=== PATIENT | female | born 1960 | race Hispanic/Latino ===

== ENCOUNTER 2018-08-05 19:21 | Emergency (ER) | payer BC ==
[2018-08-05] MEDS ORDERED: ONDANSETRON HCL 4 MG/2 ML VIAL ONE (20:08)
[2018-08-05 20:28] LABS: APPEARANCE,URINE Clear (CLEAR); BILIRUBIN,URINE Negative (NEGATIVE); COLOR,URINE Yellow (YELLOW); GLUCOSE, URINE (UA) Negative (NEGATIVE); KETONES,URINE Negative (NEGATIVE); LEUKOCYTE ESTERASE ,URINE Negative (NEGATIVE); NITRATE,URINE Negative (NEGATIVE); OCCULT BLOOD,URINE Negative (NEGATIVE); PROTEIN,URINE Negative (NEGATIVE); UROBILINOGEN,URINE 0.2 mg/dL (0.2-1.0)
[2018-08-05 21:57] LABS: BASOPHILS % (AUTO) 0.4 % (0.0-5.0); EOSINOPHILS % (AUTO) 0.5 % (0.0-8.0); HEMATOCRIT 35.9 % (36-48); LYMPHOCYTES % (AUTO) 16.3 % (21.0-51.0); MEAN CORPUSCULAR HEMOGLOBIN 32.8 pg (27.0-33.0); MEAN CORPUSCULAR VOLUME 96.4 fL (79-99); NEUTROPHILS % (AUTO) 77.8 % (40.0-77.0); PLATELET COUNT (AUTO) 236 K/uL (130-400); RED BLOOD CELL COUNT(AUTO) 3.72 MIL/uL (4.00-5.50); WHITE BLOOD COUNT (AUTO) 8.5 K/uL (4.8-10.8)
[2018-08-05 21:59] LABS: CREATININE 0.7 mg/dL (0.5-1.5); POTASSIUM 3.6 mmol/L (3.5-5.1)
[2018-08-05 22:04] LABS: ALBUMIN 4.1 g/dL (3.5-5.0); BILIRUBIN,TOTAL 0.3 mg/dL (0.2-1.0)
== END 2018-08-05 22:47 | disposition home or self-care (01) ==
LOC: EDH 19:21
DX: R00.2 Palpitations (principal); R53.1 Weakness; R42 Dizziness and giddiness; R55 Syncope and collapse; Z63.79 Other stressful life events affecting family and household; I10 Essential (primary) hypertension; E78.5 Hyperlipidemia, unspecified
CPT/HCPCS: 36415; 80053; 81003; 85025; 93005; 96361; 96374; 99285; J2405

== ENCOUNTER 2020-03-07 11:23 | Inpatient (IN) | payer BC, OTHER, SELFPAY ==
[~2020-03-07] VITALS: Ht 157.5 cm; Wt 85.1 kg
[2020-03-07] MEDS ORDERED: ACETAMINOPHEN 325 MG TAB ONE (12:43)
[2020-03-07 12:47] LABS: EOSINOPHILS % (AUTO) 1.8 % (0.0-8.0); LYMPHOCYTES % (AUTO) 6.4 % (21.0-51.0); MEAN CORPUSCULAR HEMOGLOBIN 32.1 pg (27.0-33.0); MEAN CORPUSCULAR HGB CONC 34.2 g/dL (32.0-36.0); MEAN CORPUSCULAR VOLUME 93.8 fL (79-99); MONOCYTES % (AUTO) 7.8 % (3.0-13.0); NEUTROPHILS % (AUTO) 83.8 % (40.0-77.0); PLATELET COUNT (AUTO) 193 K/uL (130-400); RED BLOOD CELL COUNT(AUTO) 4.05 MIL/uL (4.00-5.50); RED CELL DISTRIBUTION WIDTH 11.4 % (11.0-15.5); WHITE BLOOD COUNT (AUTO) 8.3 K/uL (4.8-10.8)
[2020-03-07 13:02] LABS: ALBUMIN 3.1 g/dL (3.5-5.0); BILIRUBIN,TOTAL 0.4 mg/dL (0.2-1.0); CREATININE 0.6 mg/dL (0.5-1.5); CRP QUANTITATIVE 87.8 mg/L (0.00-9.0); POTASSIUM 3.6 mmol/L (3.5-5.1); TOTAL PROTEIN, SERUM 7.6 g/dL (6.0-8.3)
[2020-03-07 13:09] LABS: ABG BASE EXCESS 2.6 mmol/L (-2.0-3.0); ABG HCO3 26.2 mmol/L (21.0-28.0); ABG OXYGEN SATURATION 90.8 % (95.0-99.0); ABG PCO2 37 mmHg (32-45)
[2020-03-07 13:33] LABS: B-TYPE NATRIURETIC PEPTIDE 42 pg/mL (0-100)
[2020-03-07] MEDS: AZITHROMYCIN 500MG+NS 250ML 250 ML IV SCH (17:15)
[2020-03-07] MEDS: BENZONATATE 100 MG CAPSULE PO SCH (17:30)
[2020-03-07] MEDS ORDERED: PHARMACY COMMUNICATION MISC SCH (17:30)
[2020-03-07] MEDS ORDERED: FAMOTIDINE/PF 20 MG/2 ML VIAL IV SCH (18:45)
[2020-03-07 18:52] VITALS: BP 125/59
[2020-03-07 20:07] VITALS: BP 132/82
[2020-03-07] MEDS: METHYLPREDNISOLONE SOD SUCC 40MG/ML 1ML IVP SCH (21:29)
[2020-03-07] MEDS: ACETAMINOPHEN 325 MG TAB PO PRN (22:29)
[2020-03-07 23:46] VITALS: BP 125/61
[2020-03-08] VITALS (16 sets, daily range): BP systolic 112–145; BP diastolic 51–90
[2020-03-08] MEDS: BENZONATATE 100 MG CAPSULE PO SCH ×3 (00:57→17:47)
[2020-03-08 04:38] LABS: HEMATOCRIT 38.7 % (36-48); MEAN CORPUSCULAR HEMOGLOBIN 32.6 pg (27.0-33.0); MEAN CORPUSCULAR HGB CONC 34.4 g/dL (32.0-36.0); MEAN CORPUSCULAR VOLUME 94.9 fL (79-99); RED BLOOD CELL COUNT(AUTO) 4.08 MIL/uL (4.00-5.50); RED CELL DISTRIBUTION WIDTH 11.6 % (11.0-15.5); WHITE BLOOD COUNT (AUTO) 7.9 K/uL (4.8-10.8)
[2020-03-08 04:52] LABS: CREATININE 0.8 mg/dL (0.5-1.5); POTASSIUM 3.6 mmol/L (3.5-5.1)
[2020-03-08] MEDS: ZINC SULFATE 220 CAPSULE PO SCH (09:02)
[2020-03-08] MEDS: METHYLPREDNISOLONE SOD SUCC 40MG/ML 1ML IVP SCH ×2 (09:03→22:21)
[2020-03-08] MEDS: ASCORBIC ACID 500 MG TAB PO SCH (09:03)
[2020-03-08] MEDS: ENOXAPARIN SODIUM 40 MG/0.4 ML SYRINGE SQ SCH (09:03)
[2020-03-08] MEDS ORDERED: SODIUM CHLORIDE 0.9% 250 ML IV ONE (13:08)
--- NOTE | 2020-03-08 15:57 | NUR ---
INITIAL: Unable to meet w pt. Spoke w pt's spouse Frankie. Prior to admission pt was living at home w spouse and her son. PT is independent w ambulation and ADLs. She does not own any DME or receive services. 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 DCP at this time is for pt to return home w her family. CM to continue to follow and wait for Md recommendations. Addendum: 03/08/20 at 1601 by JACKELYN RAMIREZ Amended: Links added.
[2020-03-08] MEDS ORDERED: PHARMACY COMMUNICATION MISC SCH (16:15)
[2020-03-08] MEDS: PHARMACY COMMUNICATION MISC SCH (16:45)
[2020-03-08] MEDS: AZITHROMYCIN 500MG+NS 250ML 250 ML IV SCH (16:57)
[2020-03-08] MEDS: ACETAMINOPHEN 325 MG TAB PO PRN (17:20)
[2020-03-09] VITALS (17 sets, daily range): BP systolic 105–138; BP diastolic 44–69
[2020-03-09] MEDS: BENZONATATE 100 MG CAPSULE PO SCH ×3 (01:04→18:14)
[2020-03-09] MEDS: PHARMACY COMMUNICATION MISC SCH (01:09)
[2020-03-09] MEDS: METHYLPREDNISOLONE SOD SUCC 40MG/ML 1ML IVP SCH (08:53)
[2020-03-09] MEDS: ASCORBIC ACID 500 MG TAB PO SCH (08:54)
[2020-03-09] MEDS: ZINC SULFATE 220 CAPSULE PO SCH (08:54)
[2020-03-09] MEDS: ENOXAPARIN SODIUM 40 MG/0.4 ML SYRINGE SQ SCH ×2 (08:54→20:58)
[2020-03-09] MEDS ORDERED: DEXAMETHASONE SOD PHOSPHATE 4 MG/ML 1ML VIAL IVP SCH (13:00)
[2020-03-09] MEDS: ACETAMINOPHEN 325 MG TAB PO PRN (13:42)
[2020-03-09] MEDS: DEXAMETHASONE SOD PHOSPHATE 4 MG/ML 1ML VIAL IVP SCH (14:30)
[2020-03-09] MEDS: AZITHROMYCIN 500MG+NS 250ML 250 ML IV SCH (18:14)
[2020-03-10] VITALS (19 sets, daily range): BP systolic 105–150; BP diastolic 42–73
[2020-03-10] MEDS: BENZONATATE 100 MG CAPSULE PO SCH ×3 (00:33→17:31)
[2020-03-10 04:07] LABS: HEMOGLOBIN A1C 6.2 % (4.0-6.0)
[2020-03-10 04:25] LABS: LACTATE DEHYDROGENASE 384 U/L (81-234)
[2020-03-10] MEDS: ENOXAPARIN SODIUM 40 MG/0.4 ML SYRINGE SQ SCH ×2 (08:13→22:18)
[2020-03-10] MEDS: ZINC SULFATE 220 CAPSULE PO SCH (08:13)
[2020-03-10] MEDS: DEXAMETHASONE SOD PHOSPHATE 4 MG/ML 1ML VIAL IVP SCH (08:13)
[2020-03-10] MEDS: ASCORBIC ACID 500 MG TAB PO SCH (08:13)
--- NOTE | 2020-03-10 14:00 | NUR ---
O2 eval: Pt unable to complete O2 with ambulation on O2. Pt desatted to 77% on 3L NC w/ambulation and was not able to complete because pt stated she felt weak. Pt placed back on bed and O2 increased to 5L to raise sats. O2 weaned back to 3L once sats reached 93%. Ivette JOHNSON notified. Addendum: 03/10/20 at 1718 by JOSEPH UGARTE RT Amended: Links added.
[2020-03-10] MEDS: AZITHROMYCIN 500MG+NS 250ML 250 ML IV SCH (17:29)
[2020-03-10] MEDS: ACETAMINOPHEN 325 MG TAB PO PRN (17:30)
[2020-03-11] VITALS (15 sets, daily range): BP systolic 102–145; BP diastolic 40–71
[2020-03-11] MEDS: BENZONATATE 100 MG CAPSULE PO SCH ×3 (01:30→17:33)
[2020-03-11 04:51] LABS: LACTATE DEHYDROGENASE 377 U/L (81-234)
[2020-03-11] MEDS: ENOXAPARIN SODIUM 40 MG/0.4 ML SYRINGE SQ SCH (07:50)
[2020-03-11] MEDS: ZINC SULFATE 220 CAPSULE PO SCH (07:51)
[2020-03-11] MEDS: ACETAMINOPHEN 325 MG TAB PO PRN ×2 (07:51→17:34)
[2020-03-11] MEDS: ASCORBIC ACID 500 MG TAB PO SCH (07:52)
[2020-03-11] MEDS: DEXAMETHASONE SOD PHOSPHATE 4 MG/ML 1ML VIAL IVP SCH (07:52)
--- NOTE | 2020-03-11 08:24 | NUR ---
D/C education involving family: Called Pt's son this AM, incorporated him with POC, both Pt and son received education about disease process, benefit of proning for at least 16hrs and importance of sitting up for at least 6hrs a day, proper breathing, use of IS, encourage Pt's son to buy pulse oximeter for O2 monitoring at home, letting them understand that with COVID desaturation with activity is normal, learning how to breath properly and concentrating in breathing to recover is very important. Demonstrate deep proper breathing to Pt and Pt's son, showed them how staying calm, breathing properly makes a difference in increasing SpO2, both Pt and Pt's son understand and verbalized understanding, answered all questions.
--- NOTE | 2020-03-11 10:47 | NUR ---
Spo2 with activity: Transferred Pt from bed to chair, chair in the other side of the bed, so Pt ambulated short distance, 3L O2 via NC in use, Pt desaturated for a quick period to SpO2 of 83%, instructed proper breathing, Pt recover quickly, Pt now maintaining SpO2 of 93-95% sitting up, with 3L O2 via NC.
--- NOTE | 2020-03-11 12:32 | NUR ---
Charlie per Dr. Early: Dr. Early at bedside, evaluated Pt, he verbalized not to d/c Pt yet, place Pt on 1mg/kg Lovenox BID, then will reevaluate.
--- NOTE | 2020-03-11 13:29 | NUR ---
DC PLAN SPOKE WITH NURSE. LEFT FORM TO LEND CONCENTRATOR AND TANK. LET HER KNOW PATIENT NOT YET SAFE TO DC DSAT DOWN TO 77% WITH OXYGEN WHEN AMBULATING. SAID WOULD HAVE RT RE CHECK PATIENT. Addendum: 03/11/20 at 1333 by VIRGIE LOZA RN CM Amended: Links added.
--- NOTE | 2020-03-11 14:22 | NUR ---
CHART CHECK COMPLETED. Pt IS A 60 YEAR OLD FEMALE ADMITTED SECONDARY TO COVID-19 VIRAL PNA AND ACUTE HYPOXEMIA. Pt HAS A PAST MEDICAL HISTORY SIGNIFICANT FOR DMII, HYPERTENSION, HLD. Pt CURRENTLY ON O2 3L VIA NASAL CANNULA. Pt ON REGULAR TEXTURE DIET. NO S/S OF ASPIRATION REPORTED AT THIS TIME. SKILLED SPEECH THERAPY IS NOT WARRANTED AT THIS TIME. PLEASE REQUEST SKILLED SPEECH THERAPY CONSULT IF ANY CONCERNS ARISE. Addendum: 03/11/20 at 1425 by RONALDO TAYLOR, [facility] Amended: Links added.
[2020-03-11] MEDS ORDERED: REMDESIVIR (EUA) 520 200 MG in SODIUM CHLORIDE 0.9% 250 ML IV ONE (15:00)
[2020-03-11] MEDS ORDERED: COMPOUND IV REFRIGERATED 1 EACH IVSOLN MISC PRN (15:00)
[2020-03-11] MEDS: AZITHROMYCIN 500MG+NS 250ML 250 ML IV SCH (17:34)
--- NOTE | 2020-03-11 17:52 | NUR ---
Remdesivir: Pt received first dose of Remdesivir today per hospital protocol, educated Pt, verbalized understanding.
[2020-03-11] MEDS: ENOXAPARIN SODIUM 100 MG/1 ML SQ SCH (21:03)
[2020-03-12] MEDS: BENZONATATE 100 MG CAPSULE PO SCH ×3 (01:50→17:30)
[2020-03-12 03:58] VITALS: BP 131/73
[2020-03-12] MEDS ORDERED: ONDANSETRON HCL 4 MG/2 ML VIAL IVP PRN (04:30)
[2020-03-12 05:08] LABS: BASOPHILS % (AUTO) 0.1 % (0.0-5.0); HEMATOCRIT 34.3 % (36-48); LYMPHOCYTES % (AUTO) 13.2 % (21.0-51.0); MEAN CORPUSCULAR HEMOGLOBIN 32.3 pg (27.0-33.0); MEAN CORPUSCULAR HGB CONC 34.4 g/dL (32.0-36.0); MONOCYTES % (AUTO) 6.2 % (3.0-13.0); NEUTROPHILS % (AUTO) 80.1 % (40.0-77.0); PLATELET COUNT (AUTO) 274 K/uL (130-400); RED BLOOD CELL COUNT(AUTO) 3.65 MIL/uL (4.00-5.50); RED CELL DISTRIBUTION WIDTH 11.2 % (11.0-15.5); WHITE BLOOD COUNT (AUTO) 8.9 K/uL (4.8-10.8)
[2020-03-12 05:27] LABS: ALBUMIN 2.6 g/dL (3.5-5.0); BILIRUBIN,DIRECT 0.1 mg/dL (0.0-0.3); BILIRUBIN,TOTAL 0.4 mg/dL (0.2-1.0); CREATININE 0.2 mg/dL (0.5-1.5); CRP QUANTITATIVE 23.3 mg/L (0.00-9.0); POTASSIUM 3.2 mmol/L (3.5-5.1); TOTAL PROTEIN, SERUM 6.6 g/dL (6.0-8.3)
[2020-03-12] MEDS: PHARMACY COMMUNICATION MISC SCH (06:00)
[2020-03-12] MEDS ORDERED: POTASSIUM CHLORIDE 20 MEQ ERTAB PO PRN (06:00)
[2020-03-12] MEDS ORDERED: LIDOCAINE HCL-MPF 1% 2ML VIAL IV PRN (06:00)
[2020-03-12] MEDS ORDERED: POTASSIUM CHLORIDE 20MEQ/100ML 100 ML IV PRN (06:00)
[2020-03-12] MEDS: POTASSIUM CHLORIDE 10% ELIXIR 20 MEQ/15 ML UDCUP PO PRN (06:28)
[2020-03-12 07:53] VITALS: BP 136/53
[2020-03-12] MEDS: ASCORBIC ACID 500 MG TAB PO SCH (08:43)
[2020-03-12] MEDS: DEXAMETHASONE SOD PHOSPHATE 4 MG/ML 1ML VIAL IVP SCH (08:44)
[2020-03-12] MEDS: ZINC SULFATE 220 CAPSULE PO SCH (08:44)
[2020-03-12] MEDS: ENOXAPARIN SODIUM 100 MG/1 ML SQ SCH ×2 (08:45→19:42)
[2020-03-12 11:34] VITALS: BP 110/52
[2020-03-12] MEDS: REMDESIVIR (EUA) 520 100 MG in SODIUM CHLORIDE 0.9% 250 ML IV SCH (14:56)
[2020-03-12 16:00] VITALS: BP 130/58
[2020-03-12] MEDS: AZITHROMYCIN 500MG+NS 250ML 250 ML IV SCH (17:15)
[2020-03-12 20:00] VITALS: BP 111/46
[2020-03-13 00:41] VITALS: BP 125/56
[2020-03-13] MEDS: BENZONATATE 100 MG CAPSULE PO SCH ×3 (01:06→18:29)
[2020-03-13 04:00] VITALS: BP 132/61
[2020-03-13 04:40] LABS: HEMATOCRIT 33.6 % (36-48); MEAN CORPUSCULAR HEMOGLOBIN 32.6 pg (27.0-33.0); MEAN CORPUSCULAR HGB CONC 34.8 g/dL (32.0-36.0); MEAN CORPUSCULAR VOLUME 93.6 fL (79-99); RED BLOOD CELL COUNT(AUTO) 3.59 MIL/uL (4.00-5.50); RED CELL DISTRIBUTION WIDTH 11.1 % (11.0-15.5); WHITE BLOOD COUNT (AUTO) 10.2 K/uL (4.8-10.8)
[2020-03-13 05:20] LABS: ALBUMIN 2.6 g/dL (3.5-5.0); BILIRUBIN,TOTAL 0.5 mg/dL (0.2-1.0); CREATININE 0.7 mg/dL (0.5-1.5); CRP QUANTITATIVE 82.6 mg/L (0.00-9.0); POTASSIUM 3.3 mmol/L (3.5-5.1); TOTAL PROTEIN, SERUM 6.5 g/dL (6.0-8.3)
[2020-03-13] MEDS: PHARMACY COMMUNICATION MISC SCH (06:00)
--- NOTE | 2020-03-13 06:06 | NUR ---
Patient resting well during the tour with no distress noted. voided per bedside commode. Prone since evening tour and continued proning at this time. patient requested adult brief to assist with having accidents. no skin breakdown noted. will continue to monitor as needed.
[2020-03-13] MEDS: POTASSIUM CHLORIDE 10% ELIXIR 20 MEQ/15 ML UDCUP PO PRN (06:18)
[2020-03-13 08:00] VITALS: BP 128/60
[2020-03-13] MEDS: ENOXAPARIN SODIUM 100 MG/1 ML SQ SCH ×2 (09:00→19:36)
[2020-03-13] MEDS: ZINC SULFATE 220 CAPSULE PO SCH (09:00)
[2020-03-13] MEDS: ASCORBIC ACID 500 MG TAB PO SCH (09:00)
[2020-03-13] MEDS: DEXAMETHASONE SOD PHOSPHATE 4 MG/ML 1ML VIAL IVP SCH ×2 (10:00→19:36)
[2020-03-13 12:00] VITALS: BP 126/58
[2020-03-13] MEDS: REMDESIVIR (EUA) 520 100 MG in SODIUM CHLORIDE 0.9% 250 ML IV SCH (15:30)
[2020-03-13 16:00] VITALS: BP 102/61
[2020-03-13] MEDS: AZITHROMYCIN 500MG+NS 250ML 250 ML IV SCH (17:15)
[2020-03-13 23:00] VITALS: BP 138/64
[2020-03-14] MEDS: BENZONATATE 100 MG CAPSULE PO SCH ×3 (02:24→17:32)
[2020-03-14 03:00] VITALS: BP 141/59
[2020-03-14 04:29] LABS: MEAN CORPUSCULAR HEMOGLOBIN 32.8 pg (27.0-33.0); MEAN CORPUSCULAR HGB CONC 34.6 g/dL (32.0-36.0); MEAN CORPUSCULAR VOLUME 94.9 fL (79-99); RED BLOOD CELL COUNT(AUTO) 3.69 MIL/uL (4.00-5.50); RED CELL DISTRIBUTION WIDTH 11.4 % (11.0-15.5); WHITE BLOOD COUNT (AUTO) 6.6 K/uL (4.8-10.8)
[2020-03-14 05:11] LABS: ALBUMIN 2.4 g/dL (3.5-5.0); BILIRUBIN,TOTAL 0.5 mg/dL (0.2-1.0); CREATININE 0.6 mg/dL (0.5-1.5); MAGNESIUM 2.4 mg/dL (1.80-2.40); POTASSIUM 3.9 mmol/L (3.5-5.1); TOTAL PROTEIN, SERUM 6.5 g/dL (6.0-8.3)
[2020-03-14] MEDS: PHARMACY COMMUNICATION MISC SCH (06:00)
[2020-03-14 08:30] VITALS: BP 133/62
[2020-03-14] MEDS: ZINC SULFATE 220 CAPSULE PO SCH (09:25)
[2020-03-14] MEDS: ASCORBIC ACID 500 MG TAB PO SCH (09:26)
[2020-03-14] MEDS: DEXAMETHASONE SOD PHOSPHATE 4 MG/ML 1ML VIAL IVP SCH ×2 (09:26→19:42)
[2020-03-14] MEDS: ENOXAPARIN SODIUM 100 MG/1 ML SQ SCH ×2 (09:27→19:43)
[2020-03-14 12:30] VITALS: BP 131/62
[2020-03-14] MEDS: REMDESIVIR (EUA) 520 100 MG in SODIUM CHLORIDE 0.9% 250 ML IV SCH (15:09)
[2020-03-14 16:30] VITALS: BP 141/68
[2020-03-14] MEDS: GUAIFENESIN-CODEINE 5 ML SYRUP PO PRN (17:32)
[2020-03-14 19:00] VITALS: BP 121/56
[2020-03-14 23:00] VITALS: BP 134/65
[2020-03-15] MEDS: GUAIFENESIN-CODEINE 5 ML SYRUP PO PRN (00:16)
[2020-03-15] MEDS: BENZONATATE 100 MG CAPSULE PO SCH ×3 (00:16→17:49)
[2020-03-15 03:00] VITALS: BP 138/67
[2020-03-15] MEDS: PHARMACY COMMUNICATION MISC SCH (05:20)
--- NOTE | 2020-03-15 06:00 | NUR ---
PT HAVING DIFFICULT TIME WEANING OFF THE NRB. SUSANNE AT 5LPM NRN. AND 10LPM NASAL CANNULA. ATTEMPTED TO WEAN OFF NRB SEVERAL TIMES. AND PT STATED INCREASED SOB. AND WOULD DESAT TO LOW80'S. PT IS IN PRONE POSITION.
[2020-03-15 06:26] LABS: BASOPHILS % (AUTO) 0.1 % (0.0-5.0); HEMATOCRIT 35.6 % (36-48); MEAN CORPUSCULAR HGB CONC 34.3 g/dL (32.0-36.0); MEAN CORPUSCULAR VOLUME 93.4 fL (79-99); MONOCYTES % (AUTO) 3.1 % (3.0-13.0); NEUTROPHILS % (AUTO) 92.5 % (40.0-77.0); PLATELET COUNT (AUTO) 173 K/uL (130-400); RED BLOOD CELL COUNT(AUTO) 3.81 MIL/uL (4.00-5.50); RED CELL DISTRIBUTION WIDTH 11.1 % (11.0-15.5); WHITE BLOOD COUNT (AUTO) 9.1 K/uL (4.8-10.8)
[2020-03-15 06:52] LABS: ALBUMIN 2.4 g/dL (3.5-5.0); BILIRUBIN,TOTAL 0.4 mg/dL (0.2-1.0); CREATININE 0.6 mg/dL (0.5-1.5); CRP QUANTITATIVE 93.1 mg/L (0.00-9.0); POTASSIUM 4.2 mmol/L (3.5-5.1); TOTAL PROTEIN, SERUM 6.7 g/dL (6.0-8.3)
[2020-03-15 08:00] VITALS: BP 139/71
[2020-03-15] MEDS: DEXAMETHASONE SOD PHOSPHATE 4 MG/ML 1ML VIAL IVP SCH ×2 (10:06→19:34)
[2020-03-15] MEDS: ASCORBIC ACID 500 MG TAB PO SCH (10:06)
[2020-03-15] MEDS: ZINC SULFATE 220 CAPSULE PO SCH (10:06)
[2020-03-15] MEDS: ENOXAPARIN SODIUM 100 MG/1 ML SQ SCH ×2 (10:07→19:34)
[2020-03-15 12:00] VITALS: BP 134/70
--- NOTE | 2020-03-15 12:15 | NUR ---
Pt instructed to complete LE in bed as per regular weekly PT Addendum: 03/15/20 at 1216 by ROSIE SOL, PT PT Amended: Links added.
[2020-03-15] MEDS: REMDESIVIR (EUA) 520 100 MG in SODIUM CHLORIDE 0.9% 250 ML IV SCH (15:55)
[2020-03-15 16:00] VITALS: BP 131/67
[2020-03-15 19:00] VITALS: BP 128/55
[2020-03-15] MEDS: INSULIN HUMULIN R 100 UNIT/ML 3ML SQ SCH (21:00)
[2020-03-15 23:00] VITALS: BP 150/63
[2020-03-16] VITALS (7 sets, daily range): BP systolic 114–142; BP diastolic 58–68
[2020-03-16] MEDS: BENZONATATE 100 MG CAPSULE PO SCH ×3 (00:31→16:36)
[2020-03-16 05:03] LABS: HEMATOCRIT 36.7 % (36-48); MEAN CORPUSCULAR HEMOGLOBIN 32.2 pg (27.0-33.0); MEAN CORPUSCULAR HGB CONC 34.6 g/dL (32.0-36.0); MEAN CORPUSCULAR VOLUME 92.9 fL (79-99); RED BLOOD CELL COUNT(AUTO) 3.95 MIL/uL (4.00-5.50); RED CELL DISTRIBUTION WIDTH 11.3 % (11.0-15.5); WHITE BLOOD COUNT (AUTO) 9.5 K/uL (4.8-10.8)
[2020-03-16 05:28] LABS: ALBUMIN 2.6 g/dL (3.5-5.0); BILIRUBIN,TOTAL 0.5 mg/dL (0.2-1.0); CREATININE 0.7 mg/dL (0.5-1.5); CRP QUANTITATIVE 70.5 mg/L (0.00-9.0); POTASSIUM 4.2 mmol/L (3.5-5.1); TOTAL PROTEIN, SERUM 6.8 g/dL (6.0-8.3)
[2020-03-16] MEDS: INSULIN HUMULIN R 100 UNIT/ML 3ML SQ SCH ×4 (06:36→20:23)
[2020-03-16] MEDS: ZINC SULFATE 220 CAPSULE PO SCH (08:21)
[2020-03-16] MEDS: ENOXAPARIN SODIUM 100 MG/1 ML SQ SCH ×2 (08:21→20:22)
[2020-03-16] MEDS: DEXAMETHASONE SOD PHOSPHATE 4 MG/ML 1ML VIAL IVP SCH ×2 (08:21→20:22)
[2020-03-16] MEDS: ASCORBIC ACID 500 MG TAB PO SCH (08:21)
--- NOTE | 2020-03-16 15:03 | NUR ---
INSTRUCTED PATIENT TO COMPLETE le E X IN BED Addendum: 03/16/20 at 1503 by ROSIE SOL, PT PT Amended: Links added.
[2020-03-16] MEDS: ACETAMINOPHEN 325 MG TAB PO PRN (20:23)
[2020-03-17] MEDS: BENZONATATE 100 MG CAPSULE PO SCH ×3 (01:30→16:45)
[2020-03-17 03:58] VITALS: BP 103/60
[2020-03-17 04:47] LABS: BASOPHILS % (AUTO) 0.1 % (0.0-5.0); HEMATOCRIT 36.1 % (36-48); LYMPHOCYTES % (AUTO) 2.4 % (21.0-51.0); MEAN CORPUSCULAR HEMOGLOBIN 32.3 pg (27.0-33.0); MEAN CORPUSCULAR HGB CONC 34.9 g/dL (32.0-36.0); MEAN CORPUSCULAR VOLUME 92.6 fL (79-99); MONOCYTES % (AUTO) 1.3 % (3.0-13.0); NEUTROPHILS % (AUTO) 95.8 % (40.0-77.0); PLATELET COUNT (AUTO) 286 K/uL (130-400); RED CELL DISTRIBUTION WIDTH 11.4 % (11.0-15.5); WHITE BLOOD COUNT (AUTO) 10.8 K/uL (4.8-10.8)
[2020-03-17 05:19] LABS: CARBON DIOXIDE 28 mmol/L (21-32); CHLORIDE 103 mmol/L (101-111); CREATININE 0.7 mg/dL (0.5-1.5); GLOMERULAR FILTR. RATE CALC 91 mL/min (>60); GLUCOSE,RANDOM 146 mg/dL (70-105); LACTATE DEHYDROGENASE 467 U/L (81-234); POTASSIUM 4.1 mmol/L (3.5-5.1); SODIUM SERUM 139 mmol/L (136-145); UREA NITROGEN, BLOOD 31 mg/dL (7-18)
[2020-03-17] MEDS: INSULIN HUMULIN R 100 UNIT/ML 3ML SQ SCH ×4 (06:28→21:00)
[2020-03-17 08:00] VITALS: BP 115/62
[2020-03-17] MEDS: DEXAMETHASONE SOD PHOSPHATE 4 MG/ML 1ML VIAL IVP SCH ×2 (08:48→19:56)
[2020-03-17] MEDS: ZINC SULFATE 220 CAPSULE PO SCH (08:49)
[2020-03-17] MEDS: ENOXAPARIN SODIUM 100 MG/1 ML SQ SCH ×2 (08:49→19:56)
[2020-03-17] MEDS: ASCORBIC ACID 500 MG TAB PO SCH (08:49)
[2020-03-17] MEDS: ACETAMINOPHEN 325 MG TAB PO PRN (10:07)
[2020-03-17 12:00] VITALS: BP 132/64
[2020-03-17 16:00] VITALS: BP 133/65
[2020-03-17] MEDS: CLONAZEPAM 0.5 MG TABLET PO SCH (19:56)
[2020-03-17 20:43] VITALS: BP 125/65
[2020-03-17 23:52] VITALS: BP 124/60
[2020-03-18] MEDS: BENZONATATE 100 MG CAPSULE PO SCH ×3 (01:30→18:26)
[2020-03-18 04:33] VITALS: BP 123/60
[2020-03-18 05:20] LABS: BASOPHILS % (AUTO) 0.1 % (0.0-5.0); HEMATOCRIT 36.4 % (36-48); LYMPHOCYTES % (AUTO) 1.9 % (21.0-51.0); MEAN CORPUSCULAR HEMOGLOBIN 32.3 pg (27.0-33.0); MEAN CORPUSCULAR HGB CONC 35.2 g/dL (32.0-36.0); MEAN CORPUSCULAR VOLUME 91.9 fL (79-99); MONOCYTES % (AUTO) 2.4 % (3.0-13.0); NEUTROPHILS % (AUTO) 95.1 % (40.0-77.0); PLATELET COUNT (AUTO) 270 K/uL (130-400); RED BLOOD CELL COUNT(AUTO) 3.96 MIL/uL (4.00-5.50); RED CELL DISTRIBUTION WIDTH 11.3 % (11.0-15.5); WHITE BLOOD COUNT (AUTO) 12.3 K/uL (4.8-10.8)
[2020-03-18 05:31] LABS: CARBON DIOXIDE 27 mmol/L (21-32); CHLORIDE 101 mmol/L (101-111); CREATININE 0.6 mg/dL (0.5-1.5); GLOMERULAR FILTR. RATE CALC 108 mL/min (>60); GLUCOSE,RANDOM 123 mg/dL (70-105); LACTATE DEHYDROGENASE 550 U/L (81-234); POTASSIUM 4.2 mmol/L (3.5-5.1); SODIUM SERUM 137 mmol/L (136-145); UREA NITROGEN, BLOOD 30 mg/dL (7-18)
[2020-03-18] MEDS: INSULIN HUMULIN R 100 UNIT/ML 3ML SQ SCH ×4 (05:44→21:00)
[2020-03-18] MEDS: GUAIFENESIN-CODEINE 5 ML SYRUP PO PRN ×3 (06:07→15:58)
[2020-03-18 08:08] VITALS: BP 120/62
[2020-03-18] MEDS: CLONAZEPAM 0.5 MG TABLET PO SCH ×2 (09:09→21:40)
[2020-03-18] MEDS: ASCORBIC ACID 500 MG TAB PO SCH (09:09)
[2020-03-18] MEDS: ZINC SULFATE 220 CAPSULE PO SCH (09:09)
[2020-03-18] MEDS: DEXAMETHASONE SOD PHOSPHATE 4 MG/ML 1ML VIAL IVP SCH ×2 (09:10→21:42)
[2020-03-18] MEDS: ENOXAPARIN SODIUM 100 MG/1 ML SQ SCH (09:10)
[2020-03-18 12:00] VITALS: BP 127/60
--- NOTE | 2020-03-18 14:35 | NUR ---
RD NOTIFICATION Pt admitted to hospital due to COVID-19. Pt seen by RD due to LOS x11 days. Pt is currently on a regular diet and consuming 75-100% as per EMR. Appetite has improved since admission, as per EMR. RD RECOMMENDATION: Continue current diet order. Pt may benefit from a heart healthy diet due to hx of HTN Monitor PO intake. If intake <50% consider Ensure BID. Pt may benefit from ProMod [address] will continue to monitor pt's status. Contact dietary as nutritional concerns arise. LABS: WBC 12.3, BUN 30, BG 123, A1C 6.2, FERRITIN 1387, ALB 2.6, TOT PRO 6.8 LBM: 03/15/20 Addendum: 03/18/20 at [address] Amended: Links added.
[2020-03-18 16:00] VITALS: BP 114/65
--- NOTE | 2020-03-18 18:38 | NUR ---
Pt was in sitting up in the chair whole day today, attempted to wean from NRB plus 10L NC, Pt was not able to tolerate well, RT placed pt on high flow NC, 45L/ 100% fio2 while sitting up, wean down to 25L/90% FiO2 maintaining SpO2 of 92% while prone, received 2 dose of guaifenesin with codeine, encourage Pt to stay in prone position for whole night.
[2020-03-18 20:21] VITALS: BP 147/67
[2020-03-18] MEDS: ENOXAPARIN SODIUM 40 MG/0.4 ML SYRINGE SQ SCH (21:42)
[2020-03-19] VITALS (7 sets, daily range): BP systolic 102–127; BP diastolic 52–67
[2020-03-19] MEDS: BENZONATATE 100 MG CAPSULE PO SCH ×3 (01:30→17:09)
[2020-03-19] MEDS: INSULIN HUMULIN R 100 UNIT/ML 3ML SQ SCH ×4 (07:30→20:46)
[2020-03-19 08:25] LABS: BASOPHILS % (AUTO) 0.1 % (0.0-5.0); LYMPHOCYTES % (AUTO) 2.5 % (21.0-51.0); MEAN CORPUSCULAR HEMOGLOBIN 31.9 pg (27.0-33.0); MEAN CORPUSCULAR HGB CONC 34.4 g/dL (32.0-36.0); MEAN CORPUSCULAR VOLUME 92.9 fL (79-99); MONOCYTES % (AUTO) 1.3 % (3.0-13.0); NEUTROPHILS % (AUTO) 95.8 % (40.0-77.0); PLATELET COUNT (AUTO) 227 K/uL (130-400); RED CELL DISTRIBUTION WIDTH 11.5 % (11.0-15.5); WHITE BLOOD COUNT (AUTO) 12.1 K/uL (4.8-10.8)
[2020-03-19 08:54] LABS: CREATININE 0.7 mg/dL (0.5-1.5); CRP QUANTITATIVE 135.1 mg/L (0.00-9.0); POTASSIUM 4.2 mmol/L (3.5-5.1)
[2020-03-19] MEDS: ZINC SULFATE 220 CAPSULE PO SCH (10:13)
[2020-03-19] MEDS: GUAIFENESIN-CODEINE 5 ML SYRUP PO PRN ×2 (10:13→17:08)
[2020-03-19] MEDS: DEXAMETHASONE SOD PHOSPHATE 4 MG/ML 1ML VIAL IVP SCH ×2 (10:13→20:45)
[2020-03-19] MEDS: CLONAZEPAM 0.5 MG TABLET PO SCH ×2 (10:14→20:44)
[2020-03-19] MEDS: ASCORBIC ACID 500 MG TAB PO SCH (10:14)
[2020-03-19] MEDS: ENOXAPARIN SODIUM 40 MG/0.4 ML SYRINGE SQ SCH ×2 (10:14→20:45)
[2020-03-20] MEDS: BENZONATATE 100 MG CAPSULE PO SCH ×3 (01:30→17:09)
[2020-03-20 04:20] VITALS: BP 122/58
[2020-03-20 05:15] LABS: BASOPHILS % (AUTO) 0.1 % (0.0-5.0); HEMATOCRIT 36.5 % (36-48); LYMPHOCYTES % (AUTO) 1.4 % (21.0-51.0); MEAN CORPUSCULAR HEMOGLOBIN 32.2 pg (27.0-33.0); MEAN CORPUSCULAR HGB CONC 34.8 g/dL (32.0-36.0); MEAN CORPUSCULAR VOLUME 92.6 fL (79-99); MONOCYTES % (AUTO) 1.6 % (3.0-13.0); NEUTROPHILS % (AUTO) 96.4 % (40.0-77.0); PLATELET COUNT (AUTO) 218 K/uL (130-400); RED BLOOD CELL COUNT(AUTO) 3.94 MIL/uL (4.00-5.50); RED CELL DISTRIBUTION WIDTH 11.4 % (11.0-15.5); WHITE BLOOD COUNT (AUTO) 13.8 K/uL (4.8-10.8)
[2020-03-20] MEDS: INSULIN HUMULIN R 100 UNIT/ML 3ML SQ SCH ×4 (05:44→21:00)
[2020-03-20 06:17] LABS: CARBON DIOXIDE 29 mmol/L (21-32); CHLORIDE 102 mmol/L (101-111); CREATININE 0.7 mg/dL (0.5-1.5); GLOMERULAR FILTR. RATE CALC 91 mL/min (>60); GLUCOSE,RANDOM 147 mg/dL (70-105); POTASSIUM 4.1 mmol/L (3.5-5.1); SODIUM SERUM 137 mmol/L (136-145); UREA NITROGEN, BLOOD 31 mg/dL (7-18)
[2020-03-20 07:46] VITALS: BP 131/67
[2020-03-20 08:20] LABS: ABG BASE EXCESS 2.9 mmol/L (-2.0-3.0); ABG HCO3 26.8 mmol/L (21.0-28.0); ABG OXYGEN SATURATION 92.2 % (95.0-99.0); ABG PCO2 38 mmHg (32-45)
[2020-03-20] MEDS: ZINC SULFATE 220 CAPSULE PO SCH (09:38)
[2020-03-20] MEDS: DEXAMETHASONE SOD PHOSPHATE 4 MG/ML 1ML VIAL IVP SCH ×2 (09:38→20:12)
[2020-03-20] MEDS: ENOXAPARIN SODIUM 40 MG/0.4 ML SYRINGE SQ SCH ×2 (09:38→20:12)
[2020-03-20] MEDS: ASCORBIC ACID 500 MG TAB PO SCH (09:38)
[2020-03-20] MEDS: CLONAZEPAM 0.5 MG TABLET PO SCH ×2 (09:38→20:12)
[2020-03-20 12:26] VITALS: BP 129/66
[2020-03-20] MEDS ORDERED: POLYETHYLENE GLYCOL 3350 17 GM POWD.PACK PO PRN (14:00)
[2020-03-20] MEDS ORDERED: LACTULOSE 20 GM/30 ML UDCUP PO SCH (15:00)
--- NOTE | 2020-03-20 15:33 | NUR ---
changed pt's pulse ox to a new one and she is now sating at 93-94% on high flow nasal canula 25l and nrb at 90%
[2020-03-20 16:26] VITALS: BP 125/64
[2020-03-20] MEDS: ACETAMINOPHEN 325 MG TAB PO PRN ×2 (17:42→21:11)
[2020-03-20 21:09] VITALS: BP 118/69
[2020-03-20 23:16] VITALS: BP 98/51
[2020-03-21] MEDS: BENZONATATE 100 MG CAPSULE PO SCH ×3 (01:06→16:50)
[2020-03-21 03:33] VITALS: BP 108/65
[2020-03-21 05:13] LABS: HEMATOCRIT 37.3 % (36-48); MEAN CORPUSCULAR HEMOGLOBIN 32.2 pg (27.0-33.0); MEAN CORPUSCULAR HGB CONC 34.6 g/dL (32.0-36.0); RED BLOOD CELL COUNT(AUTO) 4.01 MIL/uL (4.00-5.50); RED CELL DISTRIBUTION WIDTH 11.5 % (11.0-15.5); WHITE BLOOD COUNT (AUTO) 14.7 K/uL (4.8-10.8)
[2020-03-21] MEDS: ACETAMINOPHEN 325 MG TAB PO PRN ×2 (05:32→16:51)
[2020-03-21] MEDS: GUAIFENESIN-CODEINE 5 ML SYRUP PO PRN (05:32)
[2020-03-21 05:36] LABS: CRP QUANTITATIVE 116.8 mg/L (0.00-9.0)
[2020-03-21] MEDS: INSULIN HUMULIN R 100 UNIT/ML 3ML SQ SCH ×4 (06:30→20:51)
[2020-03-21 08:00] VITALS: BP 122/73
[2020-03-21] MEDS: DOCUSATE NA 100MG/10ML UDCUP PO SCH (09:21)
[2020-03-21] MEDS: CLONAZEPAM 0.5 MG TABLET PO SCH ×2 (09:22→20:09)
[2020-03-21] MEDS: SENNOSIDES 8.6 MG TABLET PO SCH (09:22)
[2020-03-21] MEDS: ASCORBIC ACID 500 MG TAB PO SCH (09:22)
[2020-03-21] MEDS: ENOXAPARIN SODIUM 40 MG/0.4 ML SYRINGE SQ SCH ×2 (09:22→20:11)
[2020-03-21] MEDS: ZINC SULFATE 220 CAPSULE PO SCH (09:22)
[2020-03-21] MEDS: DEXAMETHASONE SOD PHOSPHATE 4 MG/ML 1ML VIAL IVP SCH ×2 (09:22→20:09)
[2020-03-21] MEDS: BENZOCAINE/MENTH/CETYLPYRD CL 1 EACH LOZENGE MM PRN ×3 (10:30→20:50)
[2020-03-21 12:45] VITALS: BP 125/71
--- NOTE | 2020-03-21 15:39 | NUR ---
RD FOLLOW UP Pt is currently on a FLD with Jevity 1.[address] spoke to RN regarding pt's tolerance to Jevity 2x per meal. RN stated pt only tolerates Jevity, she desaturates quickly when consuming meals. RN mentioned MD would like more protein. ProMod 60 ml BID will provide a total of 40 gm additional protein (10 gm per 30 ml) As per EMR, last recorded BM was 03/15/20. Consider stool softener, when medically appropriate RD RECOMMENDATION: ProMod 60 ml BID If medically feasible, consider changing ONS. - Ensure: 350 kcal, 20 gm protein, 3 gm fiber, K 560mg, per 8 oz bottle - Glucerna: 220 kcal, 10 gm protein, 4gm fiber, K 380 mg per 8 oz bottle - Jevity 1.5: 355 kcal, 15.1 gm protein, 5 gm fiber, K 517 mg per 8 oz bottle If PO intake continues to decrease, consider altered nutrition means (PPN or EN) Contact dietary as nutritional concerns arise, thank you Addendum: 03/21/20 at [address] Amended: Links added.
[2020-03-21 16:00] VITALS: BP 127/67
[2020-03-21 19:12] VITALS: BP 122/58
[2020-03-21] MEDS ORDERED: NYSTATIN 100000 UNIT/ML 5ML UDCUP ONE (19:48)
[2020-03-21] MEDS: FLUCONAZOLE 200 MG/NS 100 ML 100 ML IV SCH (20:09)
[2020-03-21] MEDS: NYSTATIN 100000 UNIT/ML 5ML UDCUP PO SCH (20:09)
[2020-03-21 23:15] VITALS: BP 125/70
[2020-03-22] MEDS: ACETAMINOPHEN 325 MG TAB PO PRN (00:09)
[2020-03-22] MEDS: BENZONATATE 100 MG CAPSULE PO SCH ×3 (00:10→17:32)
[2020-03-22] MEDS: BENZOCAINE/MENTH/CETYLPYRD CL 1 EACH LOZENGE MM PRN ×2 (00:10→19:00)
[2020-03-22 03:45] VITALS: BP 124/64
[2020-03-22 06:02] LABS: HEMATOCRIT 36.7 % (36-48); MEAN CORPUSCULAR HEMOGLOBIN 32.2 pg (27.0-33.0); MEAN CORPUSCULAR HGB CONC 34.1 g/dL (32.0-36.0); MEAN CORPUSCULAR VOLUME 94.6 fL (79-99); RED BLOOD CELL COUNT(AUTO) 3.88 MIL/uL (4.00-5.50); RED CELL DISTRIBUTION WIDTH 11.7 % (11.0-15.5); WHITE BLOOD COUNT (AUTO) 12.3 K/uL (4.8-10.8)
[2020-03-22] MEDS: INSULIN HUMULIN R 100 UNIT/ML 3ML SQ SCH ×4 (06:34→20:38)
[2020-03-22 07:38] LABS: LACTATE DEHYDROGENASE 432 U/L (81-234)
[2020-03-22 08:00] VITALS: BP 126/65
[2020-03-22] MEDS: ASCORBIC ACID 500 MG TAB PO SCH (09:33)
[2020-03-22] MEDS: DOCUSATE NA 100MG/10ML UDCUP PO SCH (09:33)
[2020-03-22] MEDS: NYSTATIN 100000 UNIT/ML 5ML UDCUP PO SCH ×4 (09:33→20:42)
[2020-03-22] MEDS: SENNOSIDES 8.6 MG TABLET PO SCH (09:33)
[2020-03-22] MEDS: CLONAZEPAM 0.5 MG TABLET PO SCH ×2 (09:33→20:42)
[2020-03-22] MEDS: ZINC SULFATE 220 CAPSULE PO SCH (09:33)
[2020-03-22] MEDS: FLUCONAZOLE 200 MG/NS 100 ML 100 ML IV SCH (09:34)
[2020-03-22] MEDS: ENOXAPARIN SODIUM 40 MG/0.4 ML SYRINGE SQ SCH ×2 (09:34→20:43)
[2020-03-22] MEDS: DEXAMETHASONE SOD PHOSPHATE 4 MG/ML 1ML VIAL IVP SCH ×2 (09:34→20:39)
[2020-03-22 12:00] VITALS: BP_SYST 126; BP_SYST 146; BP_DIAS 67; BP_DIAS 79
[2020-03-22 16:00] VITALS: BP 133/73
[2020-03-22 20:43] VITALS: BP 137/68
[2020-03-23 00:02] VITALS: BP 128/73
[2020-03-23] MEDS: BENZONATATE 100 MG CAPSULE PO SCH ×3 (00:06→17:30)
[2020-03-23 01:39] LABS: APPEARANCE,URINE Turbid (CLEAR); BILIRUBIN,URINE Negative (NEGATIVE); COLOR,URINE Yellow (YELLOW); GLUCOSE, URINE (UA) Negative (NEGATIVE); KETONES,URINE Negative (NEGATIVE); LEUKOCYTE ESTERASE ,URINE Trace (NEGATIVE); NITRATE,URINE Negative (NEGATIVE); OCCULT BLOOD,URINE Negative (NEGATIVE); PROTEIN,URINE POS 2+ mg/dL (NEGATIVE)
[2020-03-23 01:52] LABS: AMORPHOUS SEDIMENT,UR Many /LPF (None Seen); BACTERIA,URINE Many /HPF (None Seen); RBC,URINE None Seen /HPF (0-1); SQUAMOUS EPITHELIAL CELL,UR Rare /HPF (0-2)
[2020-03-23] MEDS: BENZOCAINE/MENTH/CETYLPYRD CL 1 EACH LOZENGE MM PRN (02:01)
[2020-03-23] MEDS: ACETAMINOPHEN 325 MG TAB PO PRN (03:00)
[2020-03-23 03:58] VITALS: BP 134/74
[2020-03-23 05:26] LABS: HEMATOCRIT 35.9 % (36-48); MEAN CORPUSCULAR HEMOGLOBIN 32.4 pg (27.0-33.0); MEAN CORPUSCULAR VOLUME 95.2 fL (79-99); RED BLOOD CELL COUNT(AUTO) 3.77 MIL/uL (4.00-5.50); RED CELL DISTRIBUTION WIDTH 11.9 % (11.0-15.5); WHITE BLOOD COUNT (AUTO) 13.7 K/uL (4.8-10.8)
[2020-03-23 05:51] LABS: LACTATE DEHYDROGENASE 406 U/L (81-234)
[2020-03-23] MEDS: INSULIN HUMULIN R 100 UNIT/ML 3ML SQ SCH ×4 (06:42→21:00)
[2020-03-23 07:09] LABS: ABG BASE EXCESS 1.8 mmol/L (-2.0-3.0); ABG OXYGEN SATURATION 93.6 % (95.0-99.0); ABG PCO2 39 mmHg (32-45)
[2020-03-23 07:55] VITALS: BP 149/87
[2020-03-23] MEDS: ZINC SULFATE 220 CAPSULE PO SCH (09:41)
[2020-03-23] MEDS: ASCORBIC ACID 500 MG TAB PO SCH (09:41)
[2020-03-23] MEDS: DOCUSATE NA 100MG/10ML UDCUP PO SCH (09:41)
[2020-03-23] MEDS: ENOXAPARIN SODIUM 40 MG/0.4 ML SYRINGE SQ SCH ×2 (09:42→20:24)
[2020-03-23] MEDS: DEXAMETHASONE SOD PHOSPHATE 4 MG/ML 1ML VIAL IVP SCH ×2 (09:42→20:23)
[2020-03-23] MEDS: CLONAZEPAM 0.5 MG TABLET PO SCH ×2 (09:42→20:23)
[2020-03-23] MEDS: FLUCONAZOLE 200 MG/NS 100 ML 100 ML IV SCH (09:42)
[2020-03-23] MEDS: NYSTATIN 100000 UNIT/ML 5ML UDCUP PO SCH ×4 (09:42→20:23)
[2020-03-23] MEDS: SENNOSIDES 8.6 MG TABLET PO SCH (09:42)
[2020-03-23 12:15] VITALS: BP 151/64
[2020-03-23 16:05] VITALS: BP 145/66
--- NOTE | 2020-03-23 20:25 | NUR ---
MEDS SHIFT ASSESSMENT DONE, PLEASE REFER TO CHART. DUE MEDS ADMINISTERED. PT GETS VERY SOB WITH SLIGHT MOVEMENT IN BED. O2 SATS DECREASED TO 88-86% WHEN NON-REBREATHER WAS REMOVED FOR PO MEDS. PT GETS TACHYCARDIC AND DYSPNEIC DESPITE HIGH FLOW O2. O2 SATS INCREASED ONCE PT GETS SETTLED IN BED AND DOES NOT MOVE. KEPT ON PRONE POSITION. WILL MONITOR CLOSELY. CALL LIGHT WITHIN REACH. Addendum: 03/23/20 at 2226 by MILEY KIRK RN RN Amended: Links added.
--- NOTE | 2020-03-23 21:25 | NUR ---
BIPAP RT IN AND PLACED PT ON BIPAP. O2 SATS INCREASED SIGNIFICANTLY AND MAINTAINED AT 92-93 % WITH HR AT 105 BPM. WILL CONTINUE TO MONITOR.
[2020-03-23 21:57] VITALS: BP 149/75
[2020-03-24] VITALS (20 sets, daily range): BP systolic 97–163; BP diastolic 41–107
--- NOTE | 2020-03-24 | NUR ---
BIPAP PT STILL HAVING TACHYPNEA AND TACHYCARDIA WITH HZ=770 WHEN MOVING AND 98 WHEN SETTLED IN BED. RR=40/MIN. KEPT PT ON BIPAP O2 SATS 96% WITH MACHINE. WILL CONTINUE TO MONITOR. Addendum: 03/24/20 at 0010 by MILEY KIRK RN RN Amended: Links added.
[2020-03-24] MEDS: BENZONATATE 100 MG CAPSULE PO SCH ×3 (00:27→17:30)
--- NOTE | 2020-03-24 02:00 | NUR ---
O2 SATS PT'S O2 SATS MAINTAINING AT 94-96% ON THE BIPAP, HR=98. CALM AND RESTING AT THIS TIME. WILL CONTINUE TO MONITOR. CALL LIGHT WITHIN REACH.
--- NOTE | 2020-03-24 04:00 | NUR ---
ROUNDS PT STILL ON BIPAP AND OS STILL DESATS WHEN TUBINGS GETS ACCIDENTALLY DISCONNECTED BY HER. TACHYCARDIC ON THE 120'S AND RR=36-40/MIN WHEN TRYING TO MOVE IN BED. KEPT BR ON PRONE POSITION. WILL MONITOR CLOSELY. Addendum: 03/24/20 at 0412 by MILEY KIRK RN RN Amended: Links added.
[2020-03-24 04:34] LABS: HEMATOCRIT 41.8 % (36-48); MEAN CORPUSCULAR HEMOGLOBIN 32.3 pg (27.0-33.0); MEAN CORPUSCULAR HGB CONC 32.8 g/dL (32.0-36.0); MEAN CORPUSCULAR VOLUME 98.6 fL (79-99); RED BLOOD CELL COUNT(AUTO) 4.24 MIL/uL (4.00-5.50); RED CELL DISTRIBUTION WIDTH 11.9 % (11.0-15.5); WHITE BLOOD COUNT (AUTO) 19.2 K/uL (4.8-10.8)
[2020-03-24 05:05] LABS: LACTATE DEHYDROGENASE 448 U/L (81-234)
--- NOTE | 2020-03-24 05:45 | NUR ---
RESTLESS PT IS GETTING RESTLESS IN BED AND HR IS UP TO 130/MIN. TRIED TO CALM PT DOWN. FIXED BIPAP MASK. KEPT COMFORTABLE STILL ON PRONE POSITION. CALLED RT TO PLACE PT BACK TO NON-REBREATHER AND HIGH FLOW O2. RT STATED AM SHIFT WILL BE IN TO CHECK ON PT. FOR MORE CARE.
[2020-03-24] MEDS: INSULIN HUMULIN R 100 UNIT/ML 3ML SQ SCH ×4 (06:35→20:39)
--- NOTE | 2020-03-24 07:40 | NUR ---
PATIENT CURRENTLY ON BIPAP 100% FIO2, BREATHING 35-40 BREATHS PER MINUTE, PATIENT STATES SHE IS TIRED AND FEELING SHORT OF BREATH , O2 SAT 92%. DR. GREENE MADE AWARE OF CHANGE OF STATUS, NEW ORDER TRANSFER PATIENT TO ICU FOR INTUBATION. PATIENTS UPDATED ON STATUS.
[2020-03-24] MEDS ORDERED: SODIUM CHLORIDE 0.9% 1000ML 1,000 ML IV ONE (07:58)
[2020-03-24] MEDS ORDERED: MIDAZOLAM 100MG-0.9% NS 100ML 100ML BAG IV ONE (08:00)
[2020-03-24] MEDS ORDERED: FENTANYL CITRATE PF 0.05 MG/ML 1,000 MCG in SODIUM CHLORIDE 0.9% 100 ML IVPB SCH (08:00)
[2020-03-24] MEDS ORDERED: FENTANYL 2500MCG+NS 250ML 250 ML IV SCH (08:15)
[2020-03-24] MEDS ORDERED: MIDAZOLAM 100MG-0.9% NS 100ML 100 ML IV SCH (08:15)
[2020-03-24] MEDS: ASCORBIC ACID 500 MG TAB PO SCH (09:00)
[2020-03-24] MEDS: SENNOSIDES 8.6 MG TABLET PO SCH (09:00)
[2020-03-24] MEDS: CLONAZEPAM 0.5 MG TABLET PO SCH ×2 (09:00→19:50)
[2020-03-24] MEDS: DOCUSATE NA 100MG/10ML UDCUP PO SCH (09:00)
[2020-03-24] MEDS: ZINC SULFATE 220 CAPSULE PO SCH (09:00)
[2020-03-24] MEDS: NYSTATIN 100000 UNIT/ML 5ML UDCUP PO SCH ×4 (09:00→19:50)
[2020-03-24] MEDS ORDERED: PROPOFOL 1000 MG/100 ML IV PRN (11:30)
[2020-03-24 11:34] LABS: ABG BASE EXCESS -0.4 mmol/L (-2.0-3.0); ABG HCO3 29.5 mmol/L (21.0-28.0); ABG OXYGEN SATURATION 90.1 % (95.0-99.0); ABG PCO2 74 mmHg (32-45)
[2020-03-24] MEDS ORDERED: PROPOFOL 1000 MG/100 ML 100 ML IV PRN (11:45)
[2020-03-24] MEDS: ENOXAPARIN SODIUM 40 MG/0.4 ML SYRINGE SQ SCH ×2 (15:17→19:50)
[2020-03-24] MEDS: FLUCONAZOLE 200 MG/NS 100 ML 100 ML IV SCH (15:18)
[2020-03-24] MEDS: DEXAMETHASONE SOD PHOSPHATE 4 MG/ML 1ML VIAL IVP SCH ×2 (15:18→19:50)
--- NOTE | 2020-03-24 19:41 | NUR ---
DR. ZAMORA ORDERED RATE TO BE CHANGED FROM 22 TO 36 , ADJUSTED PARAMETERS, PT IS NOT TOLERATING WELL. DECREASED RATE TO 28, PT IS TOLERATING WELL. Addendum: 03/24/20 at 1943 by DIAMOND JUARES RT Amended: Links added.
[2020-03-24 20:21] LABS: ABG BASE EXCESS -0.9 mmol/L (-2.0-3.0); ABG OXYGEN SATURATION 86.3 % (95.0-99.0); ABG PCO2 52 mmHg (32-45)
[2020-03-25] VITALS (43 sets, daily range): BP systolic 99–186; BP diastolic 55–103
[2020-03-25] MEDS: BENZONATATE 100 MG CAPSULE PO SCH ×3 (02:11→17:30)
[2020-03-25 04:12] LABS: BASOPHILS % (AUTO) 0.1 % (0.0-5.0); HEMATOCRIT 40.7 % (36-48); LYMPHOCYTES % (AUTO) 1.3 % (21.0-51.0); MEAN CORPUSCULAR HEMOGLOBIN 32.3 pg (27.0-33.0); MEAN CORPUSCULAR HGB CONC 32.2 g/dL (32.0-36.0); MEAN CORPUSCULAR VOLUME 100.2 fL (79-99); MONOCYTES % (AUTO) 0.8 % (3.0-13.0); NEUTROPHILS % (AUTO) 97.4 % (40.0-77.0); PLATELET COUNT (AUTO) 188 K/uL (130-400); RED BLOOD CELL COUNT(AUTO) 4.06 MIL/uL (4.00-5.50); WHITE BLOOD COUNT (AUTO) 14.2 K/uL (4.8-10.8)
[2020-03-25 04:30] LABS: ALBUMIN 2.3 g/dL (3.5-5.0); BILIRUBIN,TOTAL 0.6 mg/dL (0.2-1.0); CREATININE 0.5 mg/dL (0.5-1.5); CRP QUANTITATIVE 148.6 mg/L (0.00-9.0); POTASSIUM 4.6 mmol/L (3.5-5.1); TOTAL PROTEIN, SERUM 7.4 g/dL (6.0-8.3)
[2020-03-25] MEDS: INSULIN HUMULIN R 100 UNIT/ML 3ML SQ SCH ×4 (06:06→21:00)
[2020-03-25] MEDS: FLUCONAZOLE 200 MG/NS 100 ML 100 ML IV SCH (08:24)
[2020-03-25] MEDS: ENOXAPARIN SODIUM 40 MG/0.4 ML SYRINGE SQ SCH ×2 (08:26→20:08)
[2020-03-25] MEDS: CLONAZEPAM 0.5 MG TABLET PO SCH ×2 (08:26→20:07)
[2020-03-25] MEDS: DOCUSATE NA 100MG/10ML UDCUP PO SCH (08:26)
[2020-03-25] MEDS: NYSTATIN 100000 UNIT/ML 5ML UDCUP PO SCH ×4 (08:26→20:07)
[2020-03-25] MEDS: DEXAMETHASONE SOD PHOSPHATE 4 MG/ML 1ML VIAL IVP SCH ×2 (08:27→20:07)
[2020-03-25] MEDS: ASCORBIC ACID 500 MG TAB PO SCH (08:27)
[2020-03-25] MEDS: ZINC SULFATE 220 CAPSULE PO SCH (08:27)
[2020-03-25] MEDS: SENNOSIDES 8.6 MG TABLET PO SCH (08:27)
--- NOTE | 2020-03-25 18:00 | NUR ---
PT HAS BEEN SEDATED ORDERED TO KEEP PATIENT FROM HYPERVENTILATION. HAD ADDED VERSED DUE TO PT ANXIETY.
[2020-03-26] VITALS (80 sets, daily range): BP systolic 72–213; BP diastolic 42–119
[2020-03-26] MEDS: BENZONATATE 100 MG CAPSULE PO SCH ×3 (03:27→17:30)
[2020-03-26 05:20] LABS: BASOPHILS % (AUTO) 0.1 % (0.0-5.0); LYMPHOCYTES % (AUTO) 2.1 % (21.0-51.0); MEAN CORPUSCULAR HEMOGLOBIN 32.3 pg (27.0-33.0); MEAN CORPUSCULAR HGB CONC 32.1 g/dL (32.0-36.0); MEAN CORPUSCULAR VOLUME 100.8 fL (79-99); MONOCYTES % (AUTO) 2.7 % (3.0-13.0); NEUTROPHILS % (AUTO) 94.7 % (40.0-77.0); PLATELET COUNT (AUTO) 174 K/uL (130-400); RED BLOOD CELL COUNT(AUTO) 3.87 MIL/uL (4.00-5.50); WHITE BLOOD COUNT (AUTO) 11.6 K/uL (4.8-10.8)
[2020-03-26 05:46] LABS: ALBUMIN 2.3 g/dL (3.5-5.0); BILIRUBIN,TOTAL 0.5 mg/dL (0.2-1.0); CREATININE 0.9 mg/dL (0.5-1.5); CRP QUANTITATIVE 99.4 mg/L (0.00-9.0); POTASSIUM 4.5 mmol/L (3.5-5.1)
[2020-03-26] MEDS: INSULIN HUMULIN R 100 UNIT/ML 3ML SQ SCH ×4 (07:00→21:00)
[2020-03-26] MEDS: FLUCONAZOLE 200 MG/NS 100 ML 100 ML IV SCH (08:14)
[2020-03-26] MEDS: DOCUSATE NA 100MG/10ML UDCUP PO SCH (08:14)
[2020-03-26] MEDS: SENNOSIDES 8.6 MG TABLET PO SCH (08:15)
[2020-03-26] MEDS: ASCORBIC ACID 500 MG TAB PO SCH (08:15)
[2020-03-26] MEDS: DEXAMETHASONE SOD PHOSPHATE 4 MG/ML 1ML VIAL IVP SCH ×2 (08:15→20:02)
[2020-03-26] MEDS: CLONAZEPAM 0.5 MG TABLET PO SCH ×2 (08:17→20:02)
[2020-03-26] MEDS: ZINC SULFATE 220 CAPSULE PO SCH (08:17)
[2020-03-26] MEDS: ENOXAPARIN SODIUM 40 MG/0.4 ML SYRINGE SQ SCH (08:18)
[2020-03-26] MEDS: NYSTATIN 100000 UNIT/ML 5ML UDCUP PO SCH ×4 (08:19→20:02)
[2020-03-26 08:46] LABS: INR 1.06 (0.85-1.15); PARTIAL THROMBOPLASTIN TIME 31.5 SEC (26.3-35.5); PROTHROMBIN TIME 11.4 SEC (9.6-11.6)
[2020-03-26] MEDS ORDERED: AZTREONAM 1 GM VIAL IVP SCH (09:00)
--- NOTE | 2020-03-26 10:30 | NUR ---
PT WAS TAKEN DOWN TO CT SCAN AND WAS ACCOMPANIED BY RESP THERAPIST JODIE AND NURSING STAFF AND TRANSPORTER FROM RADIOLOGY. REPORT WAS GIVEN TO DR. ZAMORA'S FAWN LIU NPN.
--- NOTE | 2020-03-26 11:53 | NUR ---
TIANNA DUCKWORTH RN WAS ADVISED OF THE CONSULT FOR CHEST TUBES INSERTION REQUEST PER DR. ZAMOAR.
--- NOTE | 2020-03-26 12:47 | NUR ---
RD FOLLOW UP Pt intubated 03/24/20 as per EMR Pt is NPO with no means of nutrition only Propofol Propofol at 8.8 ml/hr as per RN. This provides: 232.32 kcal from fat NPO as of 03/25/20 as per EMR. No current plans for altered nutrition means as per RN. Waiting on MD's instruction. RD RECOMMENDATION: If pt to remain NPO >5 days. Consider altered nutrition means (PPN/EN) when medically feasible Contact dietary as nutritional concerns arise LABS: WBC 11.6, NA 144, CL 109, CO2 28, BG 155, AST 42, ALT 84, ALB 2.3 LBM: 03/24/20 Addendum: 03/26/20 at [address] Amended: Links added.
--- NOTE | 2020-03-26 12:51 | NUR ---
TIANNA DUCKWORTH RN WAS ADVISED THAT DR. ZAMORA WILL BE PLACING THE CHEST TUBES HIMSELF.
[2020-03-26] MEDS: ZOSYN 3.375GM+NS 50ML 50 ML IV SCH ×2 (13:37→20:02)
[2020-03-26] MEDS ORDERED: LIDOCAINE HCL 1% 20 ML VIAL ONE (15:57)
--- NOTE | 2020-03-26 17:50 | NUR ---
DR. ZAMORA HERE AND INSERTED BILATERAL CHEST TUBES. WILL MONITOR SATURATION AND V/S.
--- NOTE | 2020-03-26 19:15 | NUR ---
PICC LINE INSERTED TO RT UPPER ARM, 6FR TRIPLE LUMEN, SECURE WITH STATLOCK, TIP PLACED AT LOWER 1/3 OF SVC OR ACJ OK TO USE PER VPS PROTOCOL
[2020-03-27] VITALS (86 sets, daily range): BP systolic 47–201; BP diastolic 26–111
[2020-03-27] MEDS ORDERED: METOPROLOL TARTRATE 1 MG/ML 5ML VIAL IV ONE (00:54)
[2020-03-27] MEDS ORDERED: NOREPINEPHRINE 4MG/NS 250ML 250 ML IV ONE ×4 (00:57→06:06)
[2020-03-27] MEDS ORDERED: SODIUM CHLORIDE 0.9% 500ML 500 ML IV ONE (01:30)
[2020-03-27] MEDS: BENZONATATE 100 MG CAPSULE PO SCH ×3 (01:30→17:30)
[2020-03-27 02:23] LABS: HEMATOCRIT 34.7 % (36-48); MEAN CORPUSCULAR HEMOGLOBIN 32.2 pg (27.0-33.0); MEAN CORPUSCULAR VOLUME 100.6 fL (79-99); NUCLEATED RED BLOOD CELLS 0.2 % (0.0-0.19); RED BLOOD CELL COUNT(AUTO) 3.45 MIL/uL (4.00-5.50); RED CELL DISTRIBUTION WIDTH 12.1 % (11.0-15.5); WHITE BLOOD COUNT (AUTO) 17.7 K/uL (4.8-10.8)
[2020-03-27 02:37] LABS: ALBUMIN 1.9 g/dL (3.5-5.0); BILIRUBIN,TOTAL 1.3 mg/dL (0.2-1.0); CREATININE 1.6 mg/dL (0.5-1.5); CRP QUANTITATIVE 62.2 mg/L (0.00-9.0); POTASSIUM 5.2 mmol/L (3.5-5.1); TOTAL PROTEIN, SERUM 6.3 g/dL (6.0-8.3)
--- NOTE | 2020-03-27 05:23 | NUR ---
At approximately 2300 saturated bloody dressing noted to left chest tube area. Sutures in place and tubing secured at this time. Dressings removed, petroleum gauze placed at on and around insertion site, sealed with 4x4 and abd pads for pressure. Around 0100 patient noted with no bp in all extremities but stable heart rate and rhythm noted. able to retrieve bp after interventions of levophed. Currently, Levophed infusing at 0.6 mcg/kg/min to right upper arm picc lumen. propofol infusing at 30 mcg/kg/min, versed 3mg/hr and fentnyl 4 mcg/hr.
[2020-03-27] MEDS: ZOSYN 3.375GM+NS 50ML 50 ML IV SCH ×3 (06:39→20:43)
[2020-03-27] MEDS: INSULIN HUMULIN R 100 UNIT/ML 3ML SQ SCH ×4 (06:40→21:00)
[2020-03-27] MEDS: NOREPINEPHRINE BITARTRATE 32 MG in SODIUM CHLORIDE 0.9% 250 ML IV SCH (08:18)
[2020-03-27] MEDS: CLONAZEPAM 0.5 MG TABLET PO SCH ×2 (08:23→20:41)
[2020-03-27] MEDS: DOCUSATE NA 100MG/10ML UDCUP PO SCH (08:24)
[2020-03-27] MEDS: DEXAMETHASONE SOD PHOSPHATE 4 MG/ML 1ML VIAL IVP SCH ×2 (08:24→20:41)
[2020-03-27] MEDS: ZINC SULFATE 220 CAPSULE PO SCH (08:25)
[2020-03-27] MEDS: ASCORBIC ACID 500 MG TAB PO SCH (08:25)
[2020-03-27] MEDS: SENNOSIDES 8.6 MG TABLET PO SCH (08:25)
[2020-03-27] MEDS: NYSTATIN 100000 UNIT/ML 5ML UDCUP PO SCH ×4 (08:25→20:41)
[2020-03-27] MEDS ORDERED: LEVOFLOXACIN 750 MG/D5W 150 ML 150 ML IV SCH (09:00)
[2020-03-27] MEDS ORDERED: RENAL DOSE IV SCH (18:15)
[2020-03-28] VITALS (68 sets, daily range): BP systolic 56–197; BP diastolic 34–83
[2020-03-28] MEDS: BENZONATATE 100 MG CAPSULE PO SCH ×3 (01:30→17:30)
[2020-03-28 04:57] LABS: BASOPHILS % (AUTO) 0.3 % (0.0-5.0); EOSINOPHILS % (AUTO) 0.1 % (0.0-8.0); HEMATOCRIT 31.1 % (36-48); LYMPHOCYTES % (AUTO) 1.5 % (21.0-51.0); MEAN CORPUSCULAR HEMOGLOBIN 32.4 pg (27.0-33.0); MEAN CORPUSCULAR HGB CONC 31.8 g/dL (32.0-36.0); MEAN CORPUSCULAR VOLUME 101.6 fL (79-99); MONOCYTES % (AUTO) 1.4 % (3.0-13.0); NEUTROPHILS % (AUTO) 95.3 % (40.0-77.0); NUCLEATED RED BLOOD CELLS 0.8 % (0.0-0.19); PLATELET COUNT (AUTO) 136 K/uL (130-400); RED BLOOD CELL COUNT(AUTO) 3.06 MIL/uL (4.00-5.50); RED CELL DISTRIBUTION WIDTH 12.3 % (11.0-15.5); WHITE BLOOD COUNT (AUTO) 27.3 K/uL (4.8-10.8)
[2020-03-28 05:17] LABS: ALBUMIN 1.9 g/dL (3.5-5.0); BILIRUBIN,TOTAL 1.4 mg/dL (0.2-1.0); TOTAL PROTEIN, SERUM 5.8 g/dL (6.0-8.3)
[2020-03-28 05:23] LABS: POTASSIUM 6.1 mmol/L (3.5-5.1)
[2020-03-28] MEDS: ZOSYN 3.375GM+NS 50ML 50 ML IV SCH (05:29)
[2020-03-28 05:42] LABS: B-TYPE NATRIURETIC PEPTIDE 603 pg/mL (0-100)
--- NOTE | 2020-03-28 05:48 | NUR ---
Critical Lab results-Provider Cotto notified regarding critical lab results. Provider addressed needs and informed author be certain to notify consulted team and to speak with family in regards to advance directives. will inform oncoming staff in regards to needs.
--- NOTE | 2020-03-28 05:51 | NUR ---
Bilateral chest tubes in place with no drainage noted around sites. Pressure dressings noted to sites and intact with sutures secured. bloody drainage noted to left chest tube canister noted at the 100 cc shelly. Currently, Levophed infusing at 0.5 mcg/kg/min, propofol infusing at 20 mcg/kg/min, versed 3mg/hr and fentnyl 40 mcg/hr to right upper arm picc. Swelling noted to bilateral upper extremities, elevated on pillows. Head of bed elevated during tour. Bed locked in low position with siderails up x3. will continue to monitor as needed.
[2020-03-28] MEDS: INSULIN HUMULIN R 100 UNIT/ML 3ML SQ SCH ×4 (06:46→20:21)
[2020-03-28 08:24] LABS: ALBUMIN 1.9 g/dL (3.5-5.0); BILIRUBIN,TOTAL 1.4 mg/dL (0.2-1.0); CREATININE 3.2 mg/dL (0.5-1.5); TOTAL PROTEIN, SERUM 5.7 g/dL (6.0-8.3)
[2020-03-28] MEDS: CLONAZEPAM 0.5 MG TABLET PO SCH ×2 (09:00→20:21)
[2020-03-28] MEDS: ZINC SULFATE 220 CAPSULE PO SCH (10:02)
[2020-03-28] MEDS: NYSTATIN 100000 UNIT/ML 5ML UDCUP PO SCH ×3 (10:02→20:20)
[2020-03-28] MEDS: SENNOSIDES 8.6 MG TABLET PO SCH (10:02)
[2020-03-28] MEDS: DOCUSATE NA 100MG/10ML UDCUP PO SCH (10:02)
[2020-03-28] MEDS: DEXAMETHASONE SOD PHOSPHATE 4 MG/ML 1ML VIAL IVP SCH ×2 (10:02→20:21)
[2020-03-28] MEDS: ASCORBIC ACID 500 MG TAB PO SCH (10:02)
[2020-03-28] MEDS ORDERED: CALCIUM GLUCONATE 1 GM/10 ML VIAL IV STA (11:36)
[2020-03-28] MEDS ORDERED: DEXTROSE 50%-WATER 50 ML DISP.SYRIN IV SCH (11:36)
[2020-03-28] MEDS ORDERED: INSULIN HUMULIN R 100 UNIT/ML 3ML IJ SCH (11:36)
[2020-03-28] MEDS ORDERED: FUROSEMIDE 10 MG/ML 10ML VIAL IVP SCH (11:36)
[2020-03-28] MEDS ORDERED: SODIUM BICARB 50MEQ 50ML VIAL IV SCH (11:36)
[2020-03-28] MEDS ORDERED: CALCIUM GLUCONATE 1 GM in SODIUM CHLORIDE 0.9% 100 ML IV SCH (12:00)
--- NOTE | 2020-03-28 12:13 | NUR ---
AM Assessment: During AM assesment, noted Propofol infusing at 20mcg/kg/min., Levophed 0.2mcg/kg/min, tried to wean Levophed down, hypotension noted, with systolic in 80's, see vs record, Pt does not tolerate yet, Fentanyl infusing 40mcg/hr, Versed 3mg/hr, wean FiO2 down to 50%, notified RT, changed bilateral chest tube dressing, both CT in suction to -20, right CT 100ml sanguineous with clots output noted, oral care and f/c care provided, critical labs reported to [facility], no orders received at this time.
[2020-03-28] MEDS ORDERED: SODIUM CHLORIDE 0.9% 1000ML 1,000 ML IV ONE (12:43)
[2020-03-28] MEDS: MEROPENEM 1 GM VIAL IVP SCH (12:45)
[2020-03-28] MEDS: SODIUM CHLORIDE 0.9% 1000ML 1,000 ML IV SCH (12:47)
[2020-03-28] MEDS ORDERED: ALBUTEROL SULFATE 0.083% 2.5 MG/3 ML INH IH ONE ×2 (13:41→13:44)
--- NOTE | 2020-03-28 14:34 | NUR ---
ECHOCARDIOGRAM ATTEMPTED BUT UNABLE TO OBTAIN DIAGNOSTIC IMAGES DUE TO BILATERAL PNEUMOTHORACES AND SUBCUTANEOUS AND MEDIASTINAL EMPHYSEMA. WILL TRY TO ATTEMPT THE ECHO ONCE THE SUBCUTANEOUS AND MEDIASTINAL EMPHYSEMA IS RESOLVED. Addendum: 03/28/20 at 1440 by Yoseph Andino [employer] NOTIFIED ELIZABETH FRANKS
[2020-03-28 15:18] LABS: CREATININE 3.5 mg/dL (0.5-1.5); POTASSIUM 5.3 mmol/L (3.5-5.1)
[2020-03-28] MEDS ORDERED: LIDOCAINE HCL 1% 20 ML VIAL ONE (17:08)
[2020-03-28] MEDS: NOREPINEPHRINE BITARTRATE 32 MG in SODIUM CHLORIDE 0.9% 250 ML IV SCH (19:32)
--- NOTE | 2020-03-28 19:49 | NUR ---
DR. ORTEGA MESSAGE LEFT ON CELL PHONE TO CALL SCRAP SORTER
--- NOTE | 2020-03-28 19:50 | NUR ---
DR. ORTEGA CALL PLACED TO PAGER #[phone]
--- NOTE | 2020-03-28 19:56 | NUR ---
Notified by Dr. Burch that pt is to get HD tonight. malted milk supervisor notified.
[2020-03-28] MEDS ORDERED: ALBUMIN (HUMAN) 25% 100 ML IV ONE ×2 (21:43→22:28)
--- NOTE | 2020-03-28 22:21 | NUR ---
Albumin administered by HD nurse.
[2020-03-28] MEDS ORDERED: HEPARIN SODIUM 5000UNIT/ML 1ML VIAL ONE (23:34)
--- NOTE | 2020-03-28 23:37 | NUR ---
2nd Albumin and Heparin lock administered by HD nurse during dialysis.
[2020-03-28 23:40] LABS: HEMATOCRIT 24.7 % (36-48)
[2020-03-29] VITALS (67 sets, daily range): BP systolic 79–178; BP diastolic 37–98
[2020-03-29] MEDS: MEROPENEM 1 GM VIAL IVP SCH ×3 (00:20→22:48)
[2020-03-29 00:40] LABS: ALBUMIN 4.3 g/dL (3.5-5.0); CREATININE 2.2 mg/dL (0.5-1.5)
[2020-03-29] MEDS: BENZONATATE 100 MG CAPSULE PO SCH (01:30)
[2020-03-29] MEDS: SODIUM CHLORIDE 0.9% 1000ML 1,000 ML IV SCH ×2 (02:05→07:33)
[2020-03-29 04:01] LABS: ABG HCO3 25.3 mmol/L (21.0-28.0); ABG OXYGEN SATURATION 84.7 % (95.0-99.0); ABG PCO2 72 mmHg (32-45)
--- NOTE | 2020-03-29 05:29 | NUR ---
Dr. Garcia called to concerning last ABG results and Vent adjustments. Rate currently 43 and FiO2 80%.
[2020-03-29 06:39] LABS: BILIRUBIN,TOTAL 1.4 mg/dL (0.2-1.0); CREATININE 2.5 mg/dL (0.5-1.5); CRP QUANTITATIVE 48.1 mg/L (0.00-9.0); POTASSIUM 4.2 mmol/L (3.5-5.1); TOTAL PROTEIN, SERUM 5.5 g/dL (6.0-8.3)
[2020-03-29 06:40] LABS: INR 1.08 (0.85-1.15); PARTIAL THROMBOPLASTIN TIME 37.6 SEC (26.3-35.5); PROTHROMBIN TIME 11.6 SEC (9.6-11.6)
[2020-03-29] MEDS: INSULIN HUMULIN R 100 UNIT/ML 3ML SQ SCH ×4 (07:30→21:00)
[2020-03-29 07:39] LABS: BASOPHILS % (AUTO) 0.1 % (0.0-5.0); LYMPHOCYTES % (AUTO) 2.3 % (21.0-51.0); MEAN CORPUSCULAR HEMOGLOBIN 32.4 pg (27.0-33.0); MEAN CORPUSCULAR VOLUME 98.1 fL (79-99); MONOCYTES % (AUTO) 1.9 % (3.0-13.0); NEUTROPHILS % (AUTO) 91.6 % (40.0-77.0); NUCLEATED RED BLOOD CELLS 2.8 % (0.0-0.19); PLATELET COUNT (AUTO) 88 K/uL (130-400); RED BLOOD CELL COUNT(AUTO) 2.13 MIL/uL (4.00-5.50); RED CELL DISTRIBUTION WIDTH 12.6 % (11.0-15.5); WHITE BLOOD COUNT (AUTO) 21.7 K/uL (4.8-10.8)
[2020-03-29 07:45] LABS: HEMATOCRIT 20.9 % (36-48)
[2020-03-29] MEDS ORDERED: LEVOFLOXACIN 750 MG/D5W 150 ML 150 ML IV SCH (09:00)
[2020-03-29] MEDS: NYSTATIN 100000 UNIT/ML 5ML UDCUP PO SCH ×4 (10:37→19:59)
[2020-03-29] MEDS: DEXAMETHASONE SOD PHOSPHATE 4 MG/ML 1ML VIAL IVP SCH ×2 (10:37→19:57)
[2020-03-29] MEDS: ZINC SULFATE 220 CAPSULE PO SCH (10:37)
[2020-03-29] MEDS: ASCORBIC ACID 500 MG TAB PO SCH (10:37)
[2020-03-29] MEDS: SENNOSIDES 8.6 MG TABLET PO SCH (10:37)
[2020-03-29] MEDS: DOCUSATE NA 100MG/10ML UDCUP PO SCH (10:37)
[2020-03-29] MEDS ORDERED: DEXMEDETOMIDINE HCL 400 MCG in SODIUM CHLORIDE 0.9% 100 ML IV SCH (15:45)
--- NOTE | 2020-03-29 15:48 | NUR ---
RD FOLLOW UP Pt is currently intubated and sedated with propofol at 8.8 ml/hr as per EMR this provides: 232.32 kcal from fat Pt has been started on Vital AF at 20 ml/hr This provides: 576 kcal, 36gm protein, 389 free water from TF Water flush of 100 ml Q6 as per EMR Residual of 25 ml as per EMR. Pt has a dark milad urine Pt has been started on HD as per EMR. Pt's condition is guarded. RD RECOMMENDATION: Monitor TF tolerance Contact RD for nutritional recommendations. RD will continue to follow pt's status. LABS: WBC 21.7, HGB 6.9, HCT 20.9, BUN 84, K 4.2, CREAT 2.5, BG 144, TOT CA 7.4 Addendum: 03/29/20 at [address] Amended: Links added.
[2020-03-29 16:27] LABS: ABG BASE EXCESS 0.3 mmol/L (-2.0-3.0); ABG HCO3 28.2 mmol/L (21.0-28.0); ABG PCO2 59 mmHg (32-45)
[2020-03-29] MEDS ORDERED: SODIUM CHLORIDE 0.9% 250 ML IV ONE (16:34)
--- NOTE | 2020-03-29 18:26 | NUR ---
RBC transfusion: 2U PRBC transfused with dialysis, no s/s of complication noted, no medication given prior to transfusion, vss, will continue to monitor.
[2020-03-29] MEDS: PANTOPRAZOLE SODIUM 40 MG TABLET.DR PO SCH (19:59)
[2020-03-29 20:08] LABS: HEMATOCRIT 33.5 % (36-48); MEAN CORPUSCULAR HEMOGLOBIN 31.5 pg (27.0-33.0); MEAN CORPUSCULAR HGB CONC 34.9 g/dL (32.0-36.0); MEAN CORPUSCULAR VOLUME 90.3 fL (79-99); NUCLEATED RED BLOOD CELLS 6.7 % (0.0-0.19); PLATELET COUNT (AUTO) 67 K/uL (130-400); RED BLOOD CELL COUNT(AUTO) 3.71 MIL/uL (4.00-5.50); RED CELL DISTRIBUTION WIDTH 14.5 % (11.0-15.5); WHITE BLOOD COUNT (AUTO) 18.7 K/uL (4.8-10.8)
[2020-03-29 20:40] LABS: EOSINOPHILS % (MANUAL) 1 % (1-6); LYMPHOCYTES % (MANUAL) 8 % (22-44); MONOCYTES % (MANUAL) 2 % (2-9); SEGMENTED NEUTROPHILS % 89 % (40-70)
[2020-03-29 20:41] LABS: MAN.DIFF COMMENT-IMPRESSION MANUAL DIFFERENTIAL
[2020-03-30] VITALS (80 sets, daily range): BP systolic 99–201; BP diastolic 44–94
[2020-03-30] MEDS: SODIUM CHLORIDE 0.9% 1000ML 1,000 ML IV SCH ×2 (00:16→18:05)
[2020-03-30 04:52] LABS: BASOPHILS % (AUTO) 0.6 % (0.0-5.0); EOSINOPHILS % (AUTO) 1.3 % (0.0-8.0); HEMATOCRIT 32.6 % (36-48); LYMPHOCYTES % (AUTO) 5.5 % (21.0-51.0); MEAN CORPUSCULAR HEMOGLOBIN 30.5 pg (27.0-33.0); MEAN CORPUSCULAR HGB CONC 34.4 g/dL (32.0-36.0); MEAN CORPUSCULAR VOLUME 88.8 fL (79-99); MONOCYTES % (AUTO) 3.3 % (3.0-13.0); NEUTROPHILS % (AUTO) 84.4 % (40.0-77.0); NUCLEATED RED BLOOD CELLS 7.5 % (0.0-0.19); PLATELET COUNT (AUTO) 69 K/uL (130-400); RED BLOOD CELL COUNT(AUTO) 3.67 MIL/uL (4.00-5.50); RED CELL DISTRIBUTION WIDTH 15.6 % (11.0-15.5); WHITE BLOOD COUNT (AUTO) 18.8 K/uL (4.8-10.8)
[2020-03-30 05:15] LABS: ALBUMIN 3.1 g/dL (3.5-5.0); BILIRUBIN,TOTAL 1.4 mg/dL (0.2-1.0); CREATININE 2.6 mg/dL (0.5-1.5); CRP QUANTITATIVE 54.1 mg/L (0.00-9.0); POTASSIUM 4.5 mmol/L (3.5-5.1); TOTAL PROTEIN, SERUM 6.3 g/dL (6.0-8.3)
[2020-03-30] MEDS: INSULIN HUMULIN R 100 UNIT/ML 3ML SQ SCH ×4 (06:33→21:15)
--- NOTE | 2020-03-30 07:03 | NUR ---
Bilateral chest tubes in place with no drainage noted around sites. Pressure dressings noted to sites and intact with sutures secured. bloody drainage noted to left chest tube canister noted at the 100 cc shelly. Levophed infusing at 0.1 mcg/kg/min and fentanyl 80 mcg/h infusing to right upper arm picc. Patient appears distress with evidence of working against breaths given and elevated blood pressure during tour. Increased fentanyl sedation first before starting other sedations to assist patient. Swelling noted to bilateral upper extremities, elevated on pillows. Tf infused during tour with no residual noted. flushes given and Head of bed remained elevated during tour. No blood transfusions needed during tour due to evidence of increase in H/H. Bed locked in low position with siderails up x3. will continue to monitor as needed. Oncoming nurse informed of patient status.
[2020-03-30] MEDS: ASCORBIC ACID 500 MG TAB PO SCH (09:30)
[2020-03-30] MEDS: NYSTATIN 100000 UNIT/ML 5ML UDCUP PO SCH ×4 (09:31→21:21)
[2020-03-30] MEDS: DOCUSATE NA 100MG/10ML UDCUP PO SCH (09:31)
[2020-03-30] MEDS: PANTOPRAZOLE SODIUM 40 MG TABLET.DR PO SCH ×2 (09:31→20:41)
[2020-03-30] MEDS: DEXAMETHASONE SOD PHOSPHATE 4 MG/ML 1ML VIAL IVP SCH ×2 (09:31→20:41)
[2020-03-30] MEDS: SENNOSIDES 8.6 MG TABLET PO SCH (09:31)
[2020-03-30] MEDS: ZINC SULFATE 220 CAPSULE PO SCH (09:31)
[2020-03-30] MEDS: MEROPENEM 1 GM VIAL IVP SCH ×2 (13:05→23:51)
[2020-03-30 16:31] LABS: ABG BASE EXCESS -5.5 mmol/L (-2.0-3.0); ABG HCO3 22.3 mmol/L (21.0-28.0); ABG OXYGEN SATURATION 85.6 % (95.0-99.0); ABG PCO2 52 mmHg (32-45)
[2020-03-30] MEDS ORDERED: ENOXAPARIN SODIUM 40 MG/0.4 ML SYRINGE SQ SCH (21:00)
[2020-03-31] VITALS (75 sets, daily range): BP systolic 67–188; BP diastolic 42–98
[2020-03-31 04:40] LABS: BASOPHILS % (AUTO) 0.3 % (0.0-5.0); HEMATOCRIT 27.4 % (36-48); LYMPHOCYTES % (AUTO) 6.7 % (21.0-51.0); MEAN CORPUSCULAR HEMOGLOBIN 30.8 pg (27.0-33.0); MEAN CORPUSCULAR HGB CONC 33.2 g/dL (32.0-36.0); MEAN CORPUSCULAR VOLUME 92.9 fL (79-99); NEUTROPHILS % (AUTO) 85.9 % (40.0-77.0); PLATELET COUNT (AUTO) 55 K/uL (130-400); RED BLOOD CELL COUNT(AUTO) 2.95 MIL/uL (4.00-5.50); RED CELL DISTRIBUTION WIDTH 16.9 % (11.0-15.5); WHITE BLOOD COUNT (AUTO) 18.4 K/uL (4.8-10.8)
[2020-03-31 05:24] LABS: ALBUMIN 2.4 g/dL (3.5-5.0); BILIRUBIN,TOTAL 0.8 mg/dL (0.2-1.0); CREATININE 3.9 mg/dL (0.5-1.5); CRP QUANTITATIVE 29.3 mg/L (0.00-9.0); POTASSIUM 5.6 mmol/L (3.5-5.1); TOTAL PROTEIN, SERUM 5.4 g/dL (6.0-8.3)
[2020-03-31] MEDS: INSULIN HUMULIN R 100 UNIT/ML 3ML SQ SCH ×4 (06:49→20:32)
[2020-03-31] MEDS: DOCUSATE NA 100MG/10ML UDCUP PO SCH (10:23)
[2020-03-31] MEDS: SENNOSIDES 8.6 MG TABLET PO SCH (10:24)
[2020-03-31] MEDS: DEXAMETHASONE SOD PHOSPHATE 4 MG/ML 1ML VIAL IVP SCH ×2 (10:24→21:10)
[2020-03-31] MEDS: ZINC SULFATE 220 CAPSULE PO SCH (10:24)
[2020-03-31] MEDS: PANTOPRAZOLE SODIUM 40 MG TABLET.DR PO SCH ×2 (10:24→21:09)
[2020-03-31] MEDS: ASCORBIC ACID 500 MG TAB PO SCH (10:24)
[2020-03-31] MEDS: MEROPENEM 1 GM VIAL IVP SCH ×2 (12:14→23:45)
[2020-03-31] MEDS ORDERED: HEPARIN SODIUM 5000UNIT/ML 1ML VIAL ONE (14:39)
--- NOTE | 2020-03-31 18:25 | NUR ---
CT dose today, Pt had dialysis done for 3 hrs, pulled only 500ml, Pt was not tolerating it well, multiple episode of hypotension noted, Levo drip restarted.
[2020-03-31] MEDS ORDERED: NOREPINEPHRINE BITARTRATE 32 MG in SODIUM CHLORIDE 0.9% 250 ML IV SCH (20:30)
[2020-03-31 22:07] LABS: HEPATITIS Bs ANTIGEN SCREEN P Negative (Negative)
[2020-04-01] VITALS (86 sets, daily range): BP systolic 51–221; BP diastolic 23–162
[2020-04-01 03:56] LABS: BASOPHILS % (AUTO) 0.3 % (0.0-5.0); HEMATOCRIT 25.3 % (36-48); LYMPHOCYTES % (AUTO) 6.4 % (21.0-51.0); MEAN CORPUSCULAR HEMOGLOBIN 31.2 pg (27.0-33.0); MEAN CORPUSCULAR HGB CONC 34.4 g/dL (32.0-36.0); MEAN CORPUSCULAR VOLUME 90.7 fL (79-99); MONOCYTES % (AUTO) 2.7 % (3.0-13.0); NUCLEATED RED BLOOD CELLS 8.3 % (0.0-0.19); PLATELET COUNT (AUTO) 51 K/uL (130-400); RED BLOOD CELL COUNT(AUTO) 2.79 MIL/uL (4.00-5.50); WHITE BLOOD COUNT (AUTO) 21.3 K/uL (4.8-10.8)
[2020-04-01 04:10] LABS: ALBUMIN 2.4 g/dL (3.5-5.0); BILIRUBIN,TOTAL 0.9 mg/dL (0.2-1.0); CREATININE 2.9 mg/dL (0.5-1.5); CRP QUANTITATIVE 17.3 mg/L (0.00-9.0); POTASSIUM 5.4 mmol/L (3.5-5.1); TOTAL PROTEIN, SERUM 5.3 g/dL (6.0-8.3)
[2020-04-01 04:11] LABS: INR 0.97 (0.85-1.15); PARTIAL THROMBOPLASTIN TIME 31.7 SEC (26.3-35.5); PROTHROMBIN TIME 10.5 SEC (9.6-11.6)
[2020-04-01 05:34] LABS: BAND NEUTROPHILS % (MANUAL) 3 % (0-2); LYMPHOCYTES % (MANUAL) 4 % (22-44); METAMYELOCYTES % 2 % (0-0); MONOCYTES % (MANUAL) 7 % (2-9); SEGMENTED NEUTROPHILS % 84 % (40-70)
[2020-04-01 05:35] LABS: MAN.DIFF COMMENT-IMPRESSION MANUAL DIFFERENTIAL
[2020-04-01 05:37] LABS: PLATELET MORPHOLOGY COMMENT MARKED DECREASE
[2020-04-01] MEDS: INSULIN HUMULIN R 100 UNIT/ML 3ML SQ SCH ×4 (07:30→21:00)
[2020-04-01] MEDS ORDERED: PHARMACY COMMUNICATION MISC SCH ×2 (09:15)
[2020-04-01] MEDS: DOCUSATE NA 100MG/10ML UDCUP PO SCH (09:42)
[2020-04-01] MEDS: DEXAMETHASONE SOD PHOSPHATE 4 MG/ML 1ML VIAL IVP SCH ×2 (09:43→22:38)
[2020-04-01] MEDS: SENNOSIDES 8.6 MG TABLET PO SCH (09:43)
[2020-04-01] MEDS: PANTOPRAZOLE SODIUM 40 MG TABLET.DR PO SCH ×2 (09:43→21:00)
[2020-04-01] MEDS: ZINC SULFATE 220 CAPSULE PO SCH (09:43)
[2020-04-01] MEDS: ASCORBIC ACID 500 MG TAB PO SCH (09:43)
[2020-04-01] MEDS: VECURONIUM BROMIDE 10 MG ML IV SCH ×3 (10:54→21:30)
[2020-04-01] MEDS: NALOXONE HCL 0.4 MG/1 ML ML IV SCH ×2 (10:54→18:00)
--- NOTE | 2020-04-01 16:23 | NUR ---
RD FOLLOW UP Pt is currently with TF VITAL AF at 20 ml/hr trophic feedings water flush of 200 ml Q4. This provides: 576 kcal ,389 ml free water, 36 gm protein Notification for TF not received. RD Notified by RN for TF recommendations. RD faxed recommendations to 2B RD RECOMMENDATION: When medically feasible to advance pt, consider goal rate of 45 ml/hr. Advance 5 ml every 5 hrs as tolerated by pt. This will provide: 1296 kcal, 876 ml free water, and 81 gm protein. Recommended water flush of 100 ml Q 4. Monitor hydration, renal function, and pt's tolerance to TF. LABS: WBC 21.3, BUN 109, GFR 18, BG 186, K 5.4, CL 100, TOT CA 8.2, ALB 2.4, TOT PRO Addendum: 04/01/20 at [address] Amended: Links added.
[2020-04-01] MEDS: MEROPENEM 1 GM VIAL IVP SCH ×2 (17:31→23:52)
[2020-04-01] MEDS ORDERED: ALBUMIN (HUMAN) 25% 100 ML IV ONE (18:05)
[2020-04-01] MEDS ORDERED: AMIODARONE HCL 360 MG in DEXTROSE 5%-WATER 200 ML IV SCH (19:00)
[2020-04-01] MEDS ORDERED: MAGNESIUM 2GM PREMIX 50ML 50 ML IV ONE (19:31)
[2020-04-01] MEDS ORDERED: HEPARIN SODIUM 5000UNIT/ML 1ML VIAL ONE (19:49)
--- NOTE | 2020-04-01 19:53 | NUR ---
Code: Throughout the day we made an effort to get DNR status, Dr. Milligan spoke to the family, Dr. Ortiz, this RN set up a zoom meting to the family hoping that if they ar able to see the Pt the will change their mind. Family still wanting full code for the Pt. 1700- Dialysis started, Levo and Vaso max dose, after an hour of dialysis, unable to obtain blood pressure, stop dialysis, given 1 dose of albumin, still cannot get blood pressure, then Pt went to Vtach no pulse, CPR started, given Epi at 1837, bicarb at 1838, obtained ROSC at 1840, given Amio 150mg at 1843, Pt remained in Vtach, shock x3 200J, started Lidocaine drip and Amio drip. Contacted family and informed Dr. Milligan, Dr. Ortiz, family still wanting full code for the Pt.
[2020-04-01 20:09] LABS: HEMATOCRIT 25.4 % (36-48); MEAN CORPUSCULAR HEMOGLOBIN 31.3 pg (27.0-33.0); MEAN CORPUSCULAR HGB CONC 33.9 g/dL (32.0-36.0); MEAN CORPUSCULAR VOLUME 92.4 fL (79-99); NUCLEATED RED BLOOD CELLS 10.6 % (0.0-0.19); PLATELET COUNT (AUTO) 48 K/uL (130-400); RED BLOOD CELL COUNT(AUTO) 2.75 MIL/uL (4.00-5.50); RED CELL DISTRIBUTION WIDTH 16.1 % (11.0-15.5); WHITE BLOOD COUNT (AUTO) 28.4 K/uL (4.8-10.8)
[2020-04-01 20:15] LABS: CREATININE 2.1 mg/dL (0.5-1.5); MAGNESIUM 2.2 mg/dL (1.80-2.40); PHOSPHORUS 7.6 mg/dL (2.5-4.9)
[2020-04-01 21:04] LABS: BAND NEUTROPHILS % (MANUAL) 5 % (0-2); LYMPHOCYTES % (MANUAL) 8 % (22-44); MONOCYTES % (MANUAL) 4 % (2-9); SEGMENTED NEUTROPHILS % 83 % (40-70)
[2020-04-01 21:05] LABS: MAN.DIFF COMMENT-IMPRESSION MANUAL DIFFERENTIAL
[2020-04-01] MEDS ORDERED: DEXMEDETOMIDINE HCL 400 MCG in SODIUM CHLORIDE 0.9% 100 ML IV SCH (21:15)
[2020-04-01] MEDS ORDERED: AMIODARONE HCL 50 MG/ML 3 ML VIAL ONE (23:38)
[2020-04-01] MEDS ORDERED: DEXTROSE 5%-WATER 500 ML IV ONE (23:39)
[2020-04-02] VITALS (43 sets, daily range): BP systolic 47–229; BP diastolic 14–107
[2020-04-02] MEDS: NALOXONE HCL 0.4 MG/1 ML ML IV SCH ×3 (02:00→18:00)
[2020-04-02] MEDS: VECURONIUM BROMIDE 10 MG ML IV SCH ×4 (03:30→21:30)
[2020-04-02 04:33] LABS: ABG BASE EXCESS -2.9 mmol/L (-2.0-3.0); ABG HCO3 24.5 mmol/L (21.0-28.0); ABG OXYGEN SATURATION 98.2 % (95.0-99.0); ABG PCO2 53 mmHg (32-45)
[2020-04-02 06:24] LABS: BASOPHILS % (AUTO) 0.5 % (0.0-5.0); HEMATOCRIT 25.7 % (36-48); LYMPHOCYTES % (AUTO) 7.4 % (21.0-51.0); MEAN CORPUSCULAR HEMOGLOBIN 31.2 pg (27.0-33.0); MEAN CORPUSCULAR HGB CONC 34.2 g/dL (32.0-36.0); MEAN CORPUSCULAR VOLUME 91.1 fL (79-99); MONOCYTES % (AUTO) 3.7 % (3.0-13.0); NUCLEATED RED BLOOD CELLS 18.5 % (0.0-0.19); PLATELET COUNT (AUTO) 68 K/uL (130-400); RED BLOOD CELL COUNT(AUTO) 2.82 MIL/uL (4.00-5.50); RED CELL DISTRIBUTION WIDTH 15.7 % (11.0-15.5)
[2020-04-02 06:41] LABS: CREATININE 2.6 mg/dL (0.5-1.5); MAGNESIUM 2.4 mg/dL (1.80-2.40); POTASSIUM 5.8 mmol/L (3.5-5.1)
[2020-04-02 07:16] LABS: LYMPHOCYTES % (MANUAL) 5 % (22-44); MAN.DIFF COMMENT-IMPRESSION MANUAL DIFFERENTIAL; MONOCYTES % (MANUAL) 3 % (2-9); PLATELET MORPHOLOGY COMMENT DECREASED; SEGMENTED NEUTROPHILS % 92 % (40-70)
[2020-04-02] MEDS: INSULIN HUMULIN R 100 UNIT/ML 3ML SQ SCH ×4 (07:30→21:00)
--- NOTE | 2020-04-02 08:44 | NUR ---
Communication to family: Dr. Milligan requested for the family to come this morning, he personally spoke to Pt's son and , explained the prognosis and how poor the prognosis is, hoping DNR will be in placed, Pt currently in max dose of Levo, Vaso, Lidocaine, and Amio drip infusing per protocol.
[2020-04-02] MEDS: MEROPENEM 1 GM VIAL IVP SCH ×2 (10:47→23:33)
[2020-04-02] MEDS: ASCORBIC ACID 500 MG TAB PO SCH (10:47)
[2020-04-02] MEDS: ZINC SULFATE 220 CAPSULE PO SCH (10:47)
[2020-04-02] MEDS: PANTOPRAZOLE SODIUM 40 MG TABLET.DR PO SCH ×2 (10:47→20:31)
[2020-04-02] MEDS: DEXAMETHASONE SOD PHOSPHATE 4 MG/ML 1ML VIAL IVP SCH ×2 (10:47→20:31)
[2020-04-02] MEDS: DOCUSATE NA 100MG/10ML UDCUP PO SCH (10:47)
[2020-04-02] MEDS: SENNOSIDES 8.6 MG TABLET PO SCH (10:49)
[2020-04-02] MEDS ORDERED: VANCOMYCIN PROTOCOL PER PHARMACY IV SCH (12:00)
[2020-04-02] MEDS ORDERED: VANCOMYCIN 1.25 GM in SODIUM CHLORIDE 0.9% 250 ML IV SCH (12:30)
[2020-04-02] MEDS: VASOPRESSIN 40 UNITS in SODIUM CHLORIDE 0.9% 40 ML IV SCH ×2 (13:04→23:40)
--- NOTE | 2020-04-02 19:02 | NUR ---
Family communication: Dr. Pickett spoke to the family, and discussed Pt's prognosis, Pt remain full code at this time.
[2020-04-03] VITALS (59 sets, daily range): BP systolic 76–271; BP diastolic 21–116
[2020-04-03] MEDS: NALOXONE HCL 0.4 MG/1 ML ML IV SCH ×3 (02:00→17:11)
[2020-04-03] MEDS: VECURONIUM BROMIDE 10 MG ML IV SCH ×4 (03:08→21:30)
[2020-04-03 04:02] LABS: BASOPHILS % (AUTO) 0.2 % (0.0-5.0); HEMATOCRIT 21.4 % (36-48); LYMPHOCYTES % (AUTO) 6.8 % (21.0-51.0); MEAN CORPUSCULAR HEMOGLOBIN 31.1 pg (27.0-33.0); MEAN CORPUSCULAR HGB CONC 33.2 g/dL (32.0-36.0); MEAN CORPUSCULAR VOLUME 93.9 fL (79-99); MONOCYTES % (AUTO) 4.5 % (3.0-13.0); NEUTROPHILS % (AUTO) 83.3 % (40.0-77.0); NUCLEATED RED BLOOD CELLS 19.3 % (0.0-0.19); PLATELET COUNT (AUTO) 70 K/uL (130-400); RED BLOOD CELL COUNT(AUTO) 2.28 MIL/uL (4.00-5.50); RED CELL DISTRIBUTION WIDTH 16.8 % (11.0-15.5); WHITE BLOOD COUNT (AUTO) 25.1 K/uL (4.8-10.8)
[2020-04-03 04:23] LABS: ALBUMIN 2.5 g/dL (3.5-5.0); BILIRUBIN,TOTAL 0.9 mg/dL (0.2-1.0); CREATININE 3.6 mg/dL (0.5-1.5); CRP QUANTITATIVE 31.4 mg/L (0.00-9.0); TOTAL PROTEIN, SERUM 4.9 g/dL (6.0-8.3)
--- NOTE | 2020-04-03 05:00 | NUR ---
Paged on-call hospitalist Alisha concerning critical labs BUN 138 and K+ 7.0.
[2020-04-03 05:16] LABS: ABG BASE EXCESS -6.4 mmol/L (-2.0-3.0); ABG HCO3 21.7 mmol/L (21.0-28.0); ABG OXYGEN SATURATION 96.9 % (95.0-99.0); ABG PCO2 53 mmHg (32-45)
[2020-04-03] MEDS: DEXTROSE 50%-WATER 50 ML DISP.SYRIN IV ONE ×2 (05:41→05:46)
[2020-04-03] MEDS ORDERED: INSULIN HUMULIN R 100 UNIT/ML 3ML IV STA (05:42)
[2020-04-03] MEDS ORDERED: DEXTROSE 50%-WATER 25 GM/50 ML VIAL IV ONE (05:45)
[2020-04-03] MEDS ORDERED: INSULIN HUMULIN R 100 UNIT/ML 3ML IV ONE (05:45)
[2020-04-03] MEDS: INSULIN HUMULIN R 100 UNIT/ML 3ML SQ SCH ×4 (06:50→21:00)
[2020-04-03 08:05] LABS: ALBUMIN 2.2 g/dL (3.5-5.0); BILIRUBIN,TOTAL 0.7 mg/dL (0.2-1.0); CREATININE 3.7 mg/dL (0.5-1.5); TOTAL PROTEIN, SERUM 4.4 g/dL (6.0-8.3)
[2020-04-03 08:07] LABS: POTASSIUM 6.5 mmol/L (3.5-5.1)
[2020-04-03] MEDS ORDERED: HEPARIN SODIUM 5000UNIT/ML 1ML VIAL ONE (08:53)
[2020-04-03] MEDS ORDERED: VANCOMYCIN 500MG+NS 100ML 100 ML IV SCH (09:00)
[2020-04-03] MEDS: ZINC SULFATE 220 CAPSULE PO SCH (09:18)
[2020-04-03] MEDS: SENNOSIDES 8.6 MG TABLET PO SCH (09:18)
[2020-04-03] MEDS: DOCUSATE NA 100MG/10ML UDCUP PO SCH (09:18)
[2020-04-03] MEDS: PANTOPRAZOLE SODIUM 40 MG TABLET.DR PO SCH ×2 (09:18→21:31)
[2020-04-03] MEDS: DEXAMETHASONE SOD PHOSPHATE 4 MG/ML 1ML VIAL IVP SCH ×2 (09:19→21:31)
[2020-04-03] MEDS: ASCORBIC ACID 500 MG TAB PO SCH (09:19)
[2020-04-03] MEDS: MEROPENEM 1 GM VIAL IVP SCH ×2 (11:09→23:17)
--- NOTE | 2020-04-03 16:49 | NUR ---
RD FOLLOW UP Pt is currently on Vital AF at 40 ml/hr Residual of 25 ml as per EMR This rate provides: 1152 kcal, 72 gm protein, 779 ml free water As per EMR, pt unable to tolerate HD, pt had a code 04/01/20 Pt's condition remains critical as per EMR RD RECOMMENDATION When medically feasible, consider Nepro/ Suplena TF formula, due to worsening renal function Consider phosphate binder/ kayexalate as medically feasible Contact RD as nutritional concerns arise LABS: NA 134, K 6.5, CL 98, CO2 20, BUN 149, CREAT 3.7, GFR 13, BG 160, TOT CA 7.4, ALB 2.2, TOT PRO 4.4 LBM: 04/01/20- TARRY PER EMR DARK RIN URINE. Addendum: 04/03/20 at [address] Amended: Links added.
--- NOTE | 2020-04-03 19:50 | NUR ---
Notified lead housekeeper concerning not being able to get a good blood pressure reading on the patient. Last BP was 122/28. Each blood pressure after that was unreadable. Vassopressin infusing at 0.04 units/hr and Noriepinephrine at 0.4 mcg/kg/hr. PT hr 110 bpm.
[2020-04-03] MEDS: VASOPRESSIN 40 UNITS in SODIUM CHLORIDE 0.9% 40 ML IV SCH (19:53)
--- NOTE | 2020-04-03 19:55 | NUR ---
Attempted to call patient family to inform them of patient's current status. No response received at this time. Voicemail left with call back number.
--- NOTE | 2020-04-03 20:20 | NUR ---
Spoke with Hospitalist concerning not being able to get a blood pressure reading on the patient. Several methods have been attempted to get a blood pressure including manual without success. Informed to page the CCU provider. Dr. Milligan paged awaiting response at this time.
--- NOTE | 2020-04-03 20:42 | NUR ---
Spoke with Dr. Milligan at this time concerning patient current status. Informed that he was aware of the patient's current status and to please notify the family. Attempted to call family prior to calling Dr. Milligan. Will retry to call.
--- NOTE | 2020-04-03 23:42 | NUR ---
Family at bedside at this time. Explain the severity of the patient status to the family. Son verbalized an understanding of the current situation.
[2020-04-04 00:03] VITALS: BP 122/25
[2020-04-04 00:31] VITALS: BP 99/25
[2020-04-04 00:49] VITALS: BP 94/24
[2020-04-04 01:30] VITALS: BP 116/23
[2020-04-04] MEDS: NALOXONE HCL 0.4 MG/1 ML ML IV SCH (02:00)
--- NOTE | 2020-04-04 03:43 | NUR ---
Eduard trejo called after patient became bradycardic into the 20's and lost pulses. Family outside room awaiting pt to be cleaned from bowel movement. Chest compressions started.
[2020-04-04 03:47] VITALS: BP 203/125
[2020-04-04 04:03] VITALS: BP 0/0
--- NOTE | 2020-04-04 04:03 | NUR ---
Patient pronounced by Dr. Antoine. Provider Emiliano MG at bedside also. Family present at bedside.
--- NOTE | 2020-04-04 04:37 | NUR ---
Called for organ donation and spoke with Radha Kaur informed that patient did not qualify due to COVID-19 ID# [id number] given. Family took all belonging to home.
--- NOTE | 2020-04-04 06:40 | NUR ---
Patient taken to [facility] [place].
== END 2020-04-04 04:03 | disposition expired | DRG 870 ==
LOC: EDH 11:23 → EDHIP 14:21 → 2BH 18:02 → 2AH 03-11 18:25 → 2BH 03-24 07:59
PROVIDERS: ADMIT Hospitalist; ATTEND Hospitalist
PROC: XW13325 Transfusion of Convalescent Plasma (Nonautologous) into Peripheral Vein, Percutaneous Approach, New Technology Group 5 (ICD-10-PCS; 2020-03-08)
PROC: XW033E5 Introduction of Remdesivir Anti-infective into Peripheral Vein, Percutaneous Approach, New Technology Group 5 (ICD-10-PCS; 2020-03-11)
PROC: 5A09357 Assistance with Respiratory Ventilation, Less than 24 Consecutive Hours, Continuous Positive Airway Pressure (ICD-10-PCS; 2020-03-13)
PROC: 5A0935A Assistance with Respiratory Ventilation, Less than 24 Consecutive Hours, High Flow/Velocity Cannula (ICD-10-PCS; 2020-03-16)
PROC: 5A0935A Assistance with Respiratory Ventilation, Less than 24 Consecutive Hours, High Flow/Velocity Cannula (ICD-10-PCS; 2020-03-18)
PROC: 5A0935A Assistance with Respiratory Ventilation, Less than 24 Consecutive Hours, High Flow/Velocity Cannula (ICD-10-PCS; 2020-03-19)
PROC: 5A0935A Assistance with Respiratory Ventilation, Less than 24 Consecutive Hours, High Flow/Velocity Cannula (ICD-10-PCS; 2020-03-20)
PROC: 5A0935A Assistance with Respiratory Ventilation, Less than 24 Consecutive Hours, High Flow/Velocity Cannula (ICD-10-PCS; 2020-03-21)
PROC: 5A0935A Assistance with Respiratory Ventilation, Less than 24 Consecutive Hours, High Flow/Velocity Cannula (ICD-10-PCS; 2020-03-22)
PROC: 5A0935A Assistance with Respiratory Ventilation, Less than 24 Consecutive Hours, High Flow/Velocity Cannula (ICD-10-PCS; 2020-03-23)
PROC: 5A1955Z Respiratory Ventilation, Greater than 96 Consecutive Hours (ICD-10-PCS; principal; 2020-03-24)
PROC: 0BH17EZ Insertion of Endotracheal Airway into Trachea, Via Natural or Artificial Opening (ICD-10-PCS; 2020-03-24)
PROC: 5A09357 Assistance with Respiratory Ventilation, Less than 24 Consecutive Hours, Continuous Positive Airway Pressure (ICD-10-PCS; 2020-03-24)
PROC: 0W9B30Z Drainage of Left Pleural Cavity with Drainage Device, Percutaneous Approach (ICD-10-PCS; 2020-03-26)
PROC: 0W9930Z Drainage of Right Pleural Cavity with Drainage Device, Percutaneous Approach (ICD-10-PCS; 2020-03-26)
PROC: 02HV33Z Insertion of Infusion Device into Superior Vena Cava, Percutaneous Approach (ICD-10-PCS; 2020-03-26)
PROC: B548ZZA Ultrasonography of Superior Vena Cava, Guidance (ICD-10-PCS; 2020-03-26)
PROC: 02HV33Z Insertion of Infusion Device into Superior Vena Cava, Percutaneous Approach (ICD-10-PCS; 2020-03-28)
PROC: B548ZZA Ultrasonography of Superior Vena Cava, Guidance (ICD-10-PCS; 2020-03-28)
PROC: 5A1D70Z Performance of Urinary Filtration, Intermittent, Less than 6 Hours Per Day (ICD-10-PCS; 2020-03-28)
PROC: 30233N1 Transfusion of Nonautologous Red Blood Cells into Peripheral Vein, Percutaneous Approach (ICD-10-PCS; 2020-03-29)
PROC: 5A1D70Z Performance of Urinary Filtration, Intermittent, Less than 6 Hours Per Day (ICD-10-PCS; 2020-03-29)
PROC: 5A1D70Z Performance of Urinary Filtration, Intermittent, Less than 6 Hours Per Day (ICD-10-PCS; 2020-03-31)
PROC: 5A1D70Z Performance of Urinary Filtration, Intermittent, Less than 6 Hours Per Day (ICD-10-PCS; 2020-04-01)
PROC: 5A1D70Z Performance of Urinary Filtration, Intermittent, Less than 6 Hours Per Day (ICD-10-PCS; 2020-04-03)
PROC: 5A12012 Performance of Cardiac Output, Single, Manual (ICD-10-PCS; 2020-04-03)
DX: A41.89 Other specified sepsis (principal); U07.1 COVID-19; J12.89 Other viral pneumonia; R65.21 Severe sepsis with septic shock; N18.6 End stage renal disease; J96.01 Acute respiratory failure with hypoxia; G93.41 Metabolic encephalopathy; K72.00 Acute and subacute hepatic failure without coma; N17.0 Acute kidney failure with tubular necrosis; H70.009 Acute mastoiditis without complications, unspecified ear; J93.9 Pneumothorax, unspecified; Z16.24 Resistance to multiple antibiotics; B37.0 Candidal stomatitis; E87.4 Mixed disorder of acid-base balance; N30.00 Acute cystitis without hematuria; Z16.12 Extended spectrum beta lactamase (ESBL) resistance; G93.1 Anoxic brain damage, not elsewhere classified; G93.49 Other encephalopathy; I47.2 Ventricular tachycardia; J91.8 Pleural effusion in other conditions classified elsewhere; I46.9 Cardiac arrest, cause unspecified; J98.2 Interstitial emphysema; D64.9 Anemia, unspecified; E87.5 Hyperkalemia; K75.89 Other specified inflammatory liver diseases; K59.04 Chronic idiopathic constipation; D69.6 Thrombocytopenia, unspecified; B96.1 Klebsiella pneumoniae [K. pneumoniae] as the cause of diseases classified elsewhere; E11.9 Type 2 diabetes mellitus without complications; F41.9 Anxiety disorder, unspecified; E78.5 Hyperlipidemia, unspecified; I10 Essential (primary) hypertension; E78.00 Pure hypercholesterolemia, unspecified; E66.9 Obesity, unspecified; Z99.2 Dependence on renal dialysis; Z68.34 Body mass index [BMI] 34.0-34.9, adult; Z83.3 Family history of diabetes mellitus; Z79.01 Long term (current) use of anticoagulants; Z98.891 History of uterine scar from previous surgery
CPT/HCPCS: 31500; 36415; 36430; 36600; 70450; 71045; 71250; 80048; 80053; 80061; 80076; 81001; 82040; 82140; 82435; 82565; 82728; 82803; 82947; 82948; 83036; 83540; 83550; 83605; 83615; 83735; 83880; 84100; 84132; 84145; 84295; 84439; 84520; 85014; 85018; 85025; 85027; 85378; 85384; 85610; 85730; 86140; 86701; 86704; 86706; 86850; 86900; 86901; 86923; 86927; 87040; 87071; 87077; 87088; 87186; 87205; 87340; 87390; 87426; 87520; 87804; 90935; 92950; 93005; 93971; 94002; 94003; 94660; 94760; A4357; C1751; C1894; G0378; J0282; J0456; J0610; J1100; J1450; J1644; J1650; J1940; J1956; J2185; J2310; J2405; J2543; J2704; J2920; J3010; J3370; J3475; J3490; J7030; J7050; J7060; J7070; P9016; P9046